=== PATIENT | female | born 1990 | race Caucasian/White ===

== ENCOUNTER 2018-03-19 01:26 | Emergency (ER) | payer OTHER, SELFPAY ==
[2018-03-19] MEDS ORDERED: NA CHLORIDE 0.9% 1,000 ML ONE (01:51)
[2018-03-19] MEDS ORDERED: KETOROLAC 30 MG/ML INJ ONE (01:51)
[2018-03-19] MEDS ORDERED: DICYCLOMINE HCL 10 MG CAP ONE (01:53)
[2018-03-19 02:20] LABS: Absolute Lymphocytes (CBC) 3.2 K/uL (0.7-4.9); Absolute Monocytes 0.6 K/uL (0.1-1.3); Absolute Neutrophil 4.9 K/uL (1.8-8.0); Basophils % 0.6 % (0-1.3); Eosinophils % 1.2 % (0-4.4); Lymphocytes % 36.3 % (15.3-44.8); MCH 28.9 pg (27.0-35.0); MCV 85.9 fL (80-100); MPV 9.7 fL (7.6-11.3); Monocytes % 6.4 % (3.3-12.3); RBC Red Blood Cell Count 4.42 M/uL (3.86-4.86)
[2018-03-19 02:27] LABS: ALT/SGPT 27 U/L (12-78); AST/SGOT 29 U/L (15-37); Albumin 3.7 g/dL (3.4-5.0); Alkaline Phosphatase 107 U/L (45-117); Amylase Level 42 U/L (25-115); BUN Blood Urea Nitrogen 13 mg/dL (7-18); Bicarbonate 30 mmol/L (21-32); Bilirubin Direct < 0.1 mg/dL (0-0.2); Bilirubin Total 0.3 mg/dL (0.2-1.0); Glucose Level 95 mg/dL (74-106); Lipase 127 U/L (73-393); Potassium 3.5 mmol/L (3.5-5.1); Protein, Total 7.5 g/dL (6.4-8.2); Sodium Level 143 mmol/L (136-145)
--- NOTE | 2018-03-19 02:36 | ER ---
Nurse's Notes [facility] Name: Barbie Mancilla Age: 27 yrs Sex: Female : 1990 Arrival Date: 03/19/2018 Time: 01:28 Bed 5 Private MD: Diagnosis: Abdominal pain Presentation: 03/19 01:38 Presenting complaint: Patient states: "I have had gal bladder problems in the past, but jd3 normally the pain goes away. Around 1200 yesterday my stomach started to hurt and it won't let up.". Transition of care: patient was not received from another setting of care. Onset of symptoms was March 19, 2018. Risk Assessment: Do you want to hurt yourself or someone else? Patient reports no desire to harm self or others. Initial Sepsis Screen: Does the patient meet any 2 criteria? No. Patient's initial sepsis screen is negative. Does the patient have a suspected source of infection? No. Patient's initial sepsis screen is negative. Care prior to arrival: None. 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 - Social history:: Smoking status: Patient/guardian denies using tobacco. - Ebola Screening: : Patient negative for fever greater than or equal to 101.5 degrees Fahrenheit, and additional compatible Ebola Virus Disease symptoms. Screenin:42 Abuse screen: Denies threats or abuse. Nutritional screening: No deficits noted. jd3 Tuberculosis screening: No symptoms or risk factors identified. Fall Risk Ambulatory Aid- None/Bed Rest/Nurse Assist (0 pts). Gait- Normal/Bed Rest/Wheelchair (0 pts) Mental Status- Oriented to own ability (0 pts). Total Dillard Fall Scale indicates No Risk (0-24 pts). Assessment: 01:43 General: Appears uncomfortable, Behavior is calm, cooperative, appropriate for age. aa1 Pain: Complains of pain in right upper quadrant and epigastric area Pain radiates to lumbar area Pain currently is 9 out of 10 on a pain scale. Quality of pain is described as crampy, Is continuous. Neuro: Level of Consciousness is awake, alert, obeys commands, Oriented to person, place, time, situation. Respiratory: Airway is patent Respiratory effort is even, unlabored, Respiratory pattern is regular, symmetrical, Breath sounds are clear bilaterally. GI: Abdomen is non-distended, Bowel sounds present X 4 quads. Abd is soft and non tender X 4 quads. : No signs and/or symptoms were reported regarding the genitourinary system. EENT: No signs and/or symptoms were reported regarding the EENT system. Derm: Skin is pink, warm \\T\\ dry. Musculoskeletal: Circulation, motion, and sensation intact. 02:42 Reassessment: Patient and/or family updated on plan of care and expected duration. Pain ea level reassessed. Patient is alert, oriented x 3, equal unlabored respirations, skin warm/dry/pink. Discharge instructions given to patient, verbalized the understanding of instruction. Vital Signs: 01:41 BP 124 / 89; Pulse 74; Resp 17 S; Temp 98.0(O); Pulse Ox 100% on R/A; Weight 104.33 kg jd3 (R); Height 5 ft. 5 in. (165.10 cm) (R); 02:41 BP 104 / 54; Pulse 70; Resp 18; Temp 97.7(TE); Pulse Ox 99% on R/A; Pain 5/10; ea 01:41 Body Mass Index 38.27 (104.33 kg, 165.10 cm) jd3 ED Course: 01:28 Patient arrived in ED. ds1 01:36 Silvia Cho FNP-C is PHCP. snw 01:36 Herb Foley MD is Attending Physician. snw 01:40 Triage completed. jd3 01:41 Kristie Garrett RN is Primary Nurse. aa1 01:41 Arm band placed on. jd3 01:42 Patient has correct armband on for positive identification. Bed in low position. Call j light in reach. Side rails up X 1. 01:49 Inserted saline lock: 20 gauge in right antecubital area, using aseptic technique. aa1 Blood collected. 02:42 No provider procedures requiring assistance completed. IV discontinued, intact, ea bleeding controlled, No redness/swelling at site. Pressure dressing applied. Administered Medications: 01:50 Drug: TORadol 30 mg Route: IVP; Site: right antecubital; ea 02:20 Follow up: Response: No adverse reaction; Pain is decreased ea 01:50 Drug: Bentyl 20 mg Route: PO; ea 02:20 Follow up: Response: No adverse reaction; Marked relief of symptoms ea 01:53 Drug: NS 0.9% 1000 ml Route: IV; Rate: 1 bolus; Site: right antecubital; ea 02:40 Follow up: Response: No adverse reaction; IV Status: Completed infusion; IV Intake: ea 1000ml Intake: 02:40 IV: 1000ml; Total: 1000ml. ea Outcome: 02:36 Discharge ordered by MD. snw 02:42 Condition: improved ea 02:43 Discharged to home ambulatory. ea 02:43 Discharge instructions given to patient, Instructed on discharge instructions, follow up and referral plans. medication usage, Demonstrated understanding of instructions, follow-up care, medications, Prescriptions given X 2. 02:45 Patient left the ED. ea Signatures: Kristie Garrett, RN RN aa1 Silvia Cho, TEST BORING CREW CHIEF-C TEST BORING CREW CHIEF-Csnw Suzanna Gamez ds1 Margarita Ralph RN RN Jossue Staples RN RN jd3
--- NOTE | 2018-03-19 02:36 | EDPHYS ---
Physician Documentation [facility] Name: Barbie Mancilla Age: 27 yrs Sex: Female : 1990 Arrival Date: 03/19/2018 Time: 01:28 Bed 5 Private MD: ED Physician Herb Foley HPI: 03/19 01:40 This 27 yrs old Female presents to ER via Unassigned with complaints of snw Abdominal Cramping. 01:40 The patient presents with abdominal pain in the epigastric area, in the right upper snw quadrant. Onset: The symptoms/episode began/occurred suddenly, just prior to arrival, and became worse and became persistent. The symptoms radiate to back. Associated signs and symptoms: none. The symptoms are described as crampy, spasms. Modifying factors: The symptoms are alleviated by nothing. Severity of pain: At its worst the pain was moderate severe. The patient has experienced similar episodes in the past, but today's symptoms are worse, lasting longer. The patient has not recently seen a physician. 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 - Social history:: Smoking status: Patient/guardian denies using tobacco. - Ebola Screening: : Patient negative for fever greater than or equal to 101.5 degrees Fahrenheit, and additional compatible Ebola Virus Disease symptoms. ROS: 01:37 Constitutional: Negative for fever, chills, and weight loss, Eyes: Negative for injury, snw pain, redness, and discharge, ENT: Negative for injury, pain, and discharge, Neck: Negative for injury, pain, and swelling, Cardiovascular: Negative for chest pain, palpitations, and edema, Respiratory: Negative for shortness of breath, cough, wheezing, and pleuritic chest pain, Back: Negative for injury and pain, : Negative for injury, bleeding, discharge, and swelling, MS/Extremity: Negative for injury and deformity, Skin: Negative for injury, rash, and discoloration, Neuro: Negative for headache, weakness, numbness, tingling, and seizure, Psych: Negative for depression, anxiety, suicide ideation, homicidal ideation, and hallucinations. 01:37 Abdomen/GI: Positive for abdominal pain, radiating to mid back. Exam: 01:37 Constitutional: This is a well developed, well nourished patient who is awake, alert, snw and in no acute distress. Head/Face: Normocephalic, atraumatic. Eyes: Pupils equal round and reactive to light, extra-ocular motions intact. Lids and lashes normal. Conjunctiva and sclera are non-icteric and not injected. Cornea within normal limits. Periorbital areas with no swelling, redness, or edema. ENT: Nares patent. No nasal discharge, no septal abnormalities noted. Tympanic membranes are normal and external auditory canals are clear. Oropharynx with no redness, swelling, or masses, exudates, or evidence of obstruction, uvula midline. Mucous membranes moist. Neck: Trachea midline, no thyromegaly or masses palpated, and no cervical lymphadenopathy. Supple, full range of motion without nuchal rigidity, or vertebral point tenderness. No Meningismus. Chest/axilla: Normal chest wall appearance and motion. Nontender with no deformity. No lesions are appreciated. Cardiovascular: Regular rate and rhythm with a normal S1 and S2. No gallops, murmurs, or rubs. Normal PMI, no JVD. No pulse deficits. Respiratory: Lungs have equal breath sounds bilaterally, clear to auscultation and percussion. No rales, rhonchi or wheezes noted. No increased work of breathing, no retractions or nasal flaring. Back: No spinal tenderness. No costovertebral tenderness. Full range of motion. Skin: Warm, dry with normal turgor. Normal color with no rashes, no lesions, and no evidence of cellulitis. MS/ Extremity: Pulses equal, no cyanosis. Neurovascular intact. Full, normal range of motion. Neuro: Awake and alert, GCS 15, oriented to person, place, time, and situation. Cranial nerves II-XII grossly intact. Motor strength 5/5 in all extremities. Sensory grossly intact. Cerebellar exam normal. Normal gait. Psych: Awake, alert, with orientation to person, place and time. Behavior, mood, and affect are within normal limits. 01:37 Abdomen/GI: Inspection: abdomen appears normal, Bowel sounds: normal, Palpation: moderate abdominal tenderness, in the epigastric area and right upper quadrant. Vital Signs: 01:41 BP 124 / 89; Pulse 74; Resp 17 S; Temp 98.0(O); Pulse Ox 100% on R/A; Weight 104.33 kg jd3 (R); Height 5 ft. 5 in. (165.10 cm) (R); 02:41 BP 104 / 54; Pulse 70; Resp 18; Temp 97.7(TE); Pulse Ox 99% on R/A; Pain 5/10; ea 01:41 Body Mass Index 38.27 (104.33 kg, 165.10 cm) jd3 MDM: 01:44 Patient medically screened. snw 02:34 Data reviewed: vital signs, nurses notes. Data interpreted: Pulse oximetry: on room air snw is 100 %. Interpretation: normal. Counseling: I had a detailed discussion with the patient and/or guardian regarding: the historical points, exam findings, and any diagnostic results supporting the discharge/admit diagnosis, the presence of at least one elevated blood pressure reading (>120/80) during this emergency department visit, lab results, the need for outpatient follow up. Response to treatment: the patient's symptoms have markedly improved after treatment. Special discussion: Based on the patient's Hx, exam, and Dx evaluation, there is no indication for emergent surgery or inpatient Tx. It is understood by the patient/guardian that if the Sx's persist or worsen they need to return immediately for re-evaluation. Based on the history and exam findings, there is no indication for further emergent testing or inpatient evaluation. I discussed with the patient/guardian the need to see the general surgeon for further evaluation of the symptoms. I discussed with the patient/guardian the need to see the primary care provider for further evaluation of the symptoms. ED course: pt feeling much better, discussed need for GB ultrasound that I cannot order at this time. Pt encouraged to return to ED for worsening symptoms or other concerns. 03/19 01:37 Order name: Amylase, Serum; Complete Time: 02:28 snw 03/19 01:37 Order name: Basic Metabolic Panel; Complete Time: 02:28 snw 03/19 01:37 Order name: CBC with Diff snw 03/19 01:37 Order name: Creatinine for Radiology; Complete Time: 02:28 snw 03/19 01:37 Order name: Hepatic Function; Complete Time: 02:28 snw 03/19 01:37 Order name: Lipase; Complete Time: 02:28 snw 03/19 01:37 Order name: Urine Microscopic Only snw 03/19 01:37 Order name: IV Saline Lock; Complete Time: 02:03 snw 03/19 02:01 Order name: Urine Dipstick--Ancillary (enter results) cc 03/19 02:02 Order name: Urine --Ancillary (enter results) cc 03/19 02:02 Order name: Urine --Ancillary EDMS 03/19 01:37 Order name: Labs collected and sent; Complete Time: 02:03 snw 03/19 01:37 Order name: Urine Dipstick-Ancillary (obtain specimen); Complete Time: 02:00 snw 03/19 01:37 Order name: Urine Test (obtain specimen); Complete Time: 02:00 snw 03/19 01:37 Order name: NPO; Complete Time: 02:02 snw Administered Medications: 01:50 Drug: TORadol 30 mg Route: IVP; Site: right antecubital; ea 02:20 Follow up: Response: No adverse reaction; Pain is decreased ea 01:50 Drug: Bentyl 20 mg Route: PO; ea 02:20 Follow up: Response: No adverse reaction; Marked relief of symptoms ea 01:53 Drug: NS 0.9% 1000 ml Route: IV; Rate: 1 bolus; Site: right antecubital; ea 02:40 Follow up: Response: No adverse reaction; IV Status: Completed infusion; IV Intake: ea 1000ml Disposition: 06:59 Co-signature as Attending Physician, Herb Foley MD. rn Disposition: 03/19/18 02:36 Discharged to Home. Impression: Abdominal pain. - Condition is Stable. - Discharge Instructions: Abdominal Pain, Adult, Biliary Colic, Adult. - Prescriptions for Bentyl 20 mg Oral Tablet - take 1 tablet by ORAL route every 6 hours As needed; 20 tablet. Diclofenac Sodium 75 mg Oral Tablet Sustained Release - take 1 tablet by ORAL route 2 times per day; 30 tablet. - Work release form, Medication Reconciliation Form, Thank You Letter, Antibiotic Education, Prescription Opioid Use form. - Follow up: Private Physician; When: 2 - 3 days; Reason: Recheck today's complaints, Continuance of care, Re-evaluation by your physician. Follow up: Emergency Department; When: As needed; Reason: Worsening of condition. Signatures: Dispatcher [employer] EDMS Silvia Cho, RONI-C DRILLING RIG OPERATOR-Csnw Herb Foley MD MD rn Antunez, Elena, RN RN ea Davies, Jonathon RN RN jd3 Corrections: (The following items were deleted from the chart) 02:45 02:36 03/19/2018 02:36 Discharged to Home. Impression: Abdominal pain. Condition is ea Stable. Discharge Instructions: Abdominal Pain, Adult, Biliary Colic, Adult. Prescriptions for Bentyl 20 mg Oral Tablet - take 1 tablet by ORAL route every 6 hours As needed; 20 tablet, Diclofenac Sodium 75 mg Oral Tablet Sustained Release - take 1 tablet by ORAL route 2 times per day; 30 tablet. and Forms are Work release form, Medication Reconciliation Form, Thank You Letter, Antibiotic Education, Prescription Opioid Use. Follow up: Private Physician; When: 2 - 3 days; Reason: Recheck today's complaints, Continuance of care, Re-evaluation by your physician. Follow up: Emergency Department; When: As needed; Reason: Worsening of condition. snw
[2018-03-19 02:52] VITALS: BP 104/54; TEMP 97.7; O2SAT 99
[2018-03-19 03:42] LABS: Urine Bacteria <20 /HPF (<20); Urine Culture Reflex Order NOT NEEDED; Urine RBC NONE SEEN /HPF (NONE SEEN)
[2018-03-19 05:56] LABS: Urine Blood NEGATIVE (NEG); Urine Glucose NEGATIVE (NEG); Urine Protein NEGATIVE (NEG)
== END 2018-03-19 02:45 | disposition home or self-care (01) ==
LOC: ER 01:26
DX: R10.13 Epigastric pain (principal)
CPT/HCPCS: 36415; 80048; 80076; 81003; 81015; 81025; 82150; 83690; 85025; 96361; 96374; 99284; J7030

== ENCOUNTER 2020-09-14 10:58 | Emergency (ER) | payer OTHER ==
--- OUTSIDE RECORDS SUMMARY | 2020-09-14 11:00 | XMS REPORT | Continuity of Care Document ---
:1990 Author Organization [facility] t Address [address] [place] [address] Care Team Providers Name Role Phone Augusto Jimenez Attending Clinician Problems This patient has no known problems. Allergies, Adverse Reactions, Alerts This patient has no known allergies or adverse reactions. Medications This patient has no known medications. Procedures This patient has no known procedures. Encounters Start End Encounter Admission Attending Care Care Encounter Source Date/Time Date/Time Type Type Clinicians Facility Department ID 2020-06-27 2020-06-27 Office [facility] [id number] 09 14:41:27 15:57:11 Visit [facility] [id number] [place] [id number] [place] [id number] [place] 044 Office [address] Results This patient has no known results.
--- OUTSIDE RECORDS SUMMARY | 2020-09-14 11:01 | XMS REPORT | Summary of Care ---
:1990 Author Organization [facility] Address [address] [place] [id number] Care Team Providers Name Role Phone Pcp, Does Not Have A Primary Care Provider Reason for Visit Reason Comments Cough x 1 month RUNNY NOSE green discharge x 1 month Ear Pain left ear x 1 month Congestion x 1 month Encounter Details Date Type Department Care Team Description 06/27/2020 Office Visit [facility] Family Ny Nagel Acut e URI (Primary Dx); Medicine - [place] Sore throat [address] [place] [address] [place] [address] [phone] Allergies No Known Allergiesdocumented as of this encounter (statuses as of 06/28/2020) Medications Medication Sig Dispensed Refills Start Date End Date Status loratadine 10 mg Take 1 tablet by 30 tablet 0 06/27/2020 Active tabletIndications: mouth daily. Acute URI, Sore throat azithromycin 250 mg Take 1 tablet by 1 Package 0 06/27/2020 Active tabletIndications: mouth daily. Take Acute URI, Sore throat 500 mg day 1, then 250 mg days 2 to 5. fluticasone propionate Use 2 Sprays in 16 g 0 06/27/2020 Active 50 mcg/actuation nasal each nostril sprayIndications: Acute daily. URI, Sore throat documented as of this encounter (statuses as of 06/28/2020) Active Problems Problem Noted Date Previous section 07/23/2019 Morbid obesity with body mass index of 40.0-49.9 07/18 documented as of this encounter (statuses as of 06/28/2020) Resolved Problems Problem Noted Date Resolved Date 39 weeks gestation of 01/21/2020 02/13/20 20 Liveborn infant, of [place] , born in hospital by 01/21/2020 02/13/2020 delivery Other back pain, unspecified chronicity 11/15/2019 02/13/2020 High-risk in third trimester 09/17/2019 0 02/13/2020 Second trimester 07/23/2019 09/17/2019 Status post bilateral salpingectomy 07/23/201908/2019 38 weeks gestation of 07/23/2019 01/21/20 20 documented as of this encounter (statuses as of 06/28/2020) Social History Tobacco Use Types Packs/Day Years Used Date Never Smoker Smokeless Tobacco: Never Used Alcohol Use Drinks/Week oz/Week Comments Not Currently Sex Assigned at Date Recorded Not on file COVID-19 Exposure Response Date Recorded In the last month, have you been in contact with No / Unsure 06/27/2020 2:54 PM [employer] someone who was confirmed or suspected to have Coronavirus / COVID-19? documented as of this encounter Last Filed Vital Signs Vital Sign Reading Time Taken Comments Blood Pressure 112/78 06/27/2020 2:53 PM [employer] Pulse 76 06/27/2020 2:53 PM [employer] Temperature 37 C (98.6 F) 06/27/2020 2:53 PM [employer] Respiratory Rate - - Oxygen Saturation 99% 06/27/2020 2:53 PM [employer] Inhaled Oxygen Concentration - - Weight 115.6 kg (254 lb 12.8 oz) 06/27/2020 2:53 PM [employer] Height 165.1 cm (5' 5") 06/27/2020 2:53 PM [employer] Body Mass Index 42.4 06/27/2020 2:53 PM [employer] documented in this encounter Progress Notes Ny Nagel PA - 06/27/2020 2:30 PM CST Cc: Chief Complaint Patient presents with Cough x 1 month RUNNY NOSE green discharge x 1 month Ear Pain left ear x 1 month Congestion x 1 month Frederick Mancilla is a 30 year old female. Patient presents with URI symptoms that began 1 months ago. Travel: No. COVID19 exposure? NO. Sick Contacts? NO URI Presenting symptoms: congestion, cough, ear pain (L, intermittent ) and fatigue Presenting symptoms: no facial pain, no fever, no rhinorrhea (denies rhinorrhea) and no sore throat Duration: 1 month Timing: Intermittent Progression: Unchanged Chronicity: New Worsened by: Nothing Associated symptoms: no arthralgias, no headaches, no myalgias, no neck pain, no sinus pain, no sneezing, no swollen glands and no wheezing Risk factors: not elderly, no chronic cardiac disease, no chronic kidney disease, no chronic respiratory disease, no diabetes mellitus, no immunosuppression, no recent illness, no recent travel and no sick contacts Allergies Frederick has No Known Allergies. Medications No outpatient medications prior to visit. No facility-administered medications prior to visit. Histories Past Medical History: Diagnosis Date Anesthesia complication Difficult with Spinal with last 2018 Second trimester 07/23/2019 Past Surgical History: Procedure Laterality Date SECTION C/S x2 SECTION N/A 01/21/2020 Surgeon: Brielle Lopez MD; Location: [facility] OR Location TUBAL LIGATION Right 01/21/2020 Surgeon: Brielle Lopez MD; Location: [facility] OR Location Social History Socioeconomic History Marital status: Spouse name: Not on file Number of children: Not on file Years of education: Not on file Highest education level: Not on file Occupational History Not on file Social Needs Financial resource strain: Not on file Food insecurity Worry: Not on file Inability: Not on file Transportation needs Medical: Not on file Non-medical: Not on file Tobacco Use Smoking status: Never Smoker Smokeless tobacco: Never Used Substance and Sexual Activity Alcohol use: Not Currently Drug use: Never Sexual activity: Yes Partners: Male Lifestyle Physical activity Days per week: Not on file Minutes per session: Not on file Stress: Not on file Relationships Social connections Talks on phone: Not on file Gets together: Not on file Attends worship service: Not on file Active member of club or organization: Not on file Attends meetings of clubs or organizations: Not on file Relationship status: Not on file Intimate partner violence Fear of current or ex partner: Not on file Emotionally abused: Not on file Physically abused: Not on file Forced sexual activity: Not on file Other Topics Concern Not on file Social History Narrative Feels safe at home Lives at home with and 4 kids Family History Problem Relation Age of Onset Diabetes Mother Hypertension Mother Arthritis Mother Prostate Cancer Father Diabetes Maternal Aunt Liver Cancer Paternal Grandfather Review of Systems Constitutional: Positive for fatigue. Negative for activity change, appetite change, chills, diaphoresis and fever. HENT: Positive for congestion, ear pain (L, intermittent ) and postnasal drip. Negative for ear discharge, facial swelling, rhinorrhea (denies rhinorrhea), sinus pressure, sinus pain, sneezing, sore throat, trouble swallowing and voice change. Eyes: Negative for pain, discharge, redness and itching. Respiratory: Positive for cough. Negative for chest tightness, shortness of breath and wheezing. Cardiovascular: Negative for chest pain, palpitations and leg swelling. Gastrointestinal: Negative for abdominal pain, constipation, diarrhea, nausea and vomiting. Genitourinary: Negative for dysuria, urgency, frequency, hematuria and flank pain. Musculoskeletal: Negative for arthralgias, back pain, gait problem, joint swelling, myalgias, neck pain and neck stiffness. Skin: Negative for color change and rash. Neurological: Negative for dizziness, syncope, weakness, light-headedness and headaches. Psychiatric/Behavioral: Negative for confusion. Vital Signs BP 112/78 (BP Location: Left arm, Patient Position: Sitting, BP CUFF SIZE: Adult Large) | Pulse 76| Temp 37 C (98.6 F) (Oral) | Ht 5' 5" (1.651 m) | Wt 254 lb 12.8 oz (115.6 kg) | LMP 06/25/2020 | SpO2 99% | BMI 42.40 kg/m Physical Exam Vitals signs and nursing note reviewed. Constitutional: General: She is not in acute distress. Appearance: She is well-developed. She is not ill-appearing, toxic-appearing or diaphoretic. HENT: Head: Normocephalic and atraumatic. Right Ear: Tympanic membrane, ear canal and external ear normal. Left Ear: Tympanic membrane, ear canal and external ear normal. Nose: Mucosal edema present. No rhinorrhea. Mouth/Throat: Mouth: Mucous membranes are moist. Pharynx: Oropharynx is clear. Uvula midline. Posterior oropharyngeal erythema present. No pharyngeal swelling, oropharyngeal exudate or uvula swelling. Tonsils: No tonsillar exudate or tonsillar abscesses. 1+ on the right. 1+ on the left. Comments: + post nasal drip Eyes: General: Right eye: No discharge. Left eye: No discharge. Conjunctiva/sclera: Conjunctivae normal. Neck: Musculoskeletal: Normal range of motion and neck supple. Cardiovascular: Rate and Rhythm: Normal rate and regular rhythm. Heart sounds: Normal heart sounds. Pulmonary: Effort: Pulmonary effort is normal. No respiratory distress. Breath sounds: Normal breath sounds. No stridor. No wheezing, rhonchi or rales. Abdominal: General: Bowel sounds are normal. There is no distension. Palpations: Abdomen is soft. Tenderness: There is no abdominal tenderness. There is no guarding. Musculoskeletal: Normal range of motion. Lymphadenopathy: Cervical: No cervical adenopathy. Skin: General: Skin is warm and dry. Findings: No rash. Neurological: Mental Status: She is alert and oriented to person, place, and time. Psychiatric: Behavior: Behavior normal. Assessment/Plan Acute URI (primary encounter diagnosis) Sore throat Plan: POCT GRP A STREP (MOLECULAR), loratadine 10 mg tablet, azithromycin 250 mg tablet, fluticasone propionate 50 mcg/actuation nasal spray Results for FREDERICK MANCILLA ( ) as of 06/28/2020 12:17 Ref. Range 06/27/2020 00:00 POCT GP A STREP Latest Ref Range: Negative - Negative Negative Afebrile, well appearing, non-toxic, NAD. HR < 100, lungs CTAB, O2 sat 99%. Strep negative. COVID-19 test recommended but refused by patient. Recommend self quarantine. Given duration of symptoms, will go ahead and cover for bacterial URI. Take full course as directed with food. Follow-up with ENT if no improvement. Educated on the following at home care: -Take loratadine daily -Take flonase: 1-2 sprays in each nostril daily -Increase water intake -Take over the counter vitamin C/multivitamin with vitamin C -Take Tylenol as needed, avoid nsaids -REST -Wash hands often -Cover mouth when coughing -Wear mask with in the same room/car as others -Gargle with warm salt water as needed -Drink warm liquids as needed. -Throat lozenges as needed -Quarantine until your COVID results are back -Stay in your own bedroom and use a separate bathroom -Keep at least 6 feet from you and others -Avoid sharing personal household items, dishes, glasses, cups, towels -Clean high traffic/touch areas daily. These include but not limited to: doorknobs, refrigerator/cabinet handles, phones, keyboards, tablets, light switches. -Monitor your symptoms. Take your temperature 2 times daily. -Follow-up with PCP as needed, if no improvement. -Monitor your symptoms. Go to the ED if worsening symptoms: chest pain, difficulty breathing, coughing up blood, weakness, dizziness, passing out, AMS. -[facility] handout provided Pt ed/precautions given in detail regarding conditions/medicaitons. Er precautions given. Pt reportsunderstanding and agrees. rtc if s/s worsen or do not improve; Plan of care, desired health behaviors, goals, Ddx, & any prescribed or OTC medications discussed with patient. Education resources & self management tools provided and reviewed with AVS. Patient/guardian/family verbalized understanding & agrees to plan of care. Barriers to care: NONE Ability to manage care: Good This visit did not involve counseling and coordination that comprised more than 50% of the visit time. documented in this encounter Plan of Treatment Date Type Specialty Care Team Description 08/18/2020 Office Visit Obstetrics & Gynecology Heaven Moore PA-C [address] [place] [address] [phone] Health Maintenance Due Date Last Done Comments VARICELLA VACCINES (1 of 2 - 1993 2-dose childhood series) DTaP,Tdap,and Td Vaccines (1 - 2011 Tdap) INFLUENZA VACCINE (#1) 2021 Postponed from 04/15/2020 (Refused) Depression Screening 06/27/2021 06/27/2020 PAP SMEAR 07/18/2022 07/18/2019 PNEUMOCOCCAL 0-64 YEARS COMBINED Aged Out No longer eligible based on SERIES patient's age to complete this topic documented as of this encounter Procedures Procedure Name Priority Date/Time Associated Diagnosis Comme nts POCT GRP A STREP Routine 06/27/2020 Acute URI Results for this (MOLECULAR) Sore throat procedure are i n the results section . documented in this encounter Results POCT GRP A STREP (MOLECULAR) (06/27/2020) Pathologist Sig nature POCT GP A STREP Negative Negative - Negative Specimen Swab - THROAT documented in this encounter Visit Diagnoses Diagnosis Acute URI - Primary Acute upper respiratory infections of un specified site Sore throat Acute pharyngitis documented in this encounter Insurance Payer Benefit Plan / Subscriber ID Effective Phone Address T e Group Dates [facility] [id number] 2016-Prese [address] Medic aid [facility] CHO[facility] - [place] [id number] MANAGED MEDICAID [place], [place] [phone] documented as of this encounter
[2020-09-14] MEDS ORDERED: dexAMETHasone 10 MG/ML VIAL ONE (12:00)
[2020-09-14] MEDS ORDERED: ALBUTEROL INHALER 60 PUFF/8 GM IH ONE (12:00)
[2020-09-14 13:09] LABS: SARS-COV-2 RT PCR POSITIVE (NEGATIVE)
--- NOTE | 2020-09-14 13:37 | RAD REPORT ---
EXAM DESCRIPTION: Brittnee Single View09/14/2020 1:17 pm CLINICAL HISTORY: Fever COMPARISON: none FINDINGS: Moderate left lung opacities. There may be mild right lung opacities. Heart is normal siz e IMPRESSION: Moderate left pulmonary opacities. Probable mild right lung opacities. These findings probably indicate pneumonia
--- NOTE | 2020-09-14 13:58 | EDPHYS ---
Physician Documentation [facility] Name: Barbie Mancilla Age: 30 yrs Sex: Female : 1990 Arrival Date: 09/14/2020 Time: 11:00 Bed 8 Private MD: ED Physician Maryann Rojas HPI: 09/14 12:06 This 30 yrs old Female presents to ER via Ambulatory with complaints of pm1 Shortness Of Breath. 12:06 The patient or guardian reports cough, fever, congestion, fatigue. Onset: The pm1 symptoms/episode began/occurred 1 week(s) ago. Modifying factors: The symptoms are alleviated by her children's breathing treatments, the symptoms are aggravated by nothing. Associated signs and symptoms: Pertinent negatives: chest pain, sore throat. Severity of symptoms: in the emergency department the symptoms are unchanged. The patient has not experienced similar symptoms in the past. The patient has not recently seen a physician. Historical: - Allergies: 11:04 No Known Allergies; ss - Home Meds: 11:04 None [Active]; ss - PMHx: 11:04 None; ss - PSHx: 11:04 ; ss - Immunization history:: Adult Immunizations up to date. - Social history:: Smoking status: Patient denies any tobacco usage or history of. ROS: 12:06 Cardiovascular: Negative for chest pain, palpitations, and edema. pm1 12:06 Abdomen/GI: Negative for abdominal pain, nausea, vomiting, diarrhea, and constipation, Back: Negative for injury and pain, MS/Extremity: Negative for injury and deformity, Skin: Negative for injury, rash, and discoloration, Neuro: Negative for headache, weakness, numbness, tingling, and seizure. 12:06 Constitutional: Positive for body aches, fatigue, fever, Negative for poor PO intake. 12:06 Respiratory: Positive for cough, shortness of breath. Exam: 12:06 Constitutional: This is a well developed, well nourished patient who is awake, alert, pm1 and in no acute distress. Head/Face: Normocephalic, atraumatic. 12:06 Back: No spinal tenderness. No costovertebral tenderness. Full range of motion. Skin: Warm, dry with normal turgor. Normal color with no rashes, no lesions, and no evidence of cellulitis. MS/ Extremity: Pulses equal, no cyanosis. Neurovascular intact. Full, normal range of motion. 12:06 ENT: External ear(s): are unremarkable, Ear canal(s): are normal, TM's: are normal, Posterior pharynx: is normal, airway is patent, no acute changes, peritonsillar mass, is not appreciated, pooling of secretions, is not appreciated. 12:06 Cardiovascular: Exam negative for acute changes, Rate: normal, Rhythm: regular, Pulses: no pulse deficits are appreciated. 12:06 Respiratory: Exam negative for acute changes, respiratory distress, shortness of breath. 12:06 Abdomen/GI: Exam negative for acute changes, Inspection: abdomen appears normal, Palpation: abdomen is soft and non-tender, in all quadrants. 12:06 Neuro: Exam negative for acute changes, Orientation: is normal, Mentation: is normal, Motor: is normal, moves all fours. Vital Signs: 11:04 BP 139 / 68; Pulse 119; Resp 16; Temp 99.1(TE); Pulse Ox 98% on R/A; Weight 113.4 kg; ss Height 5 ft. 5 in. (165.10 cm); Pain 4/10; 13:45 BP 112 / 97; Pulse 107; Resp 20; Pulse Ox 95% ; sv 11:04 Body Mass Index 41.60 (113.40 kg, 165.10 cm) ss MDM: 11:37 Patient medically screened. pm1 13:11 ED course: Patient reports some improvement with albuterol. Main complaint now is her pm1 cough. Offered cough medication and she refused. 13:54 Data reviewed: vital signs. pm1 13:54 Counseling: I had a detailed discussion with the patient and/or guardian regarding: the pm1 historical points, exam findings, and any diagnostic results supporting the discharge/admit diagnosis, lab results, radiology results, the need for outpatient follow up, to return to the emergency department if symptoms worsen or persist or if there are any questions or concerns that arise at home. 09/14 11:44 Order name: Strep; Complete Time: 12:39 pm1 09/14 12:56 Order name: Chest Single View XRAY; Complete Time: 13:40 pm1 09/14 13:10 Order name: COVID-19/FLU A+B; Complete Time: 13:15 EDLA 09/14 13:55 Order name: Throat Culture [facility] 09/14 11:44 Order name: Droplet/Contact Precautions; Complete Time: 11:46 pm1 09/14 11:44 Order name: Labs collected and sent; Complete Time: 12:00 pm1 09/14 11:44 Order name: O2 Per Protocol; Complete Time: 11:46 pm1 Administered Medications: 11:59 Drug: Decadron 10 mg Route: IM; Site: right deltoid; sv 12:49 Follow up: Response: No adverse reaction sv 11:59 Drug: Albuterol HFA Inhaler 2 puffs Route: Inhalation; sv 14:29 Drug: Ivermectin 0.2 mg/kg Route: PO; sv 14:29 Follow up: Response: No adverse reaction; Medication administered at discharge. sv Disposition: 09/14/20 13:57 Discharged to Home. Impression: Coronavirus infection, unspecified - Pneumonia. - Condition is Stable. - Discharge Instructions: Community-Acquired Pneumonia, Adult, Viral Respiratory Infection, [id number], COVID-19. - Prescriptions for ivermectin 3 mg Oral tablet - take 6 tablet by ORAL route one time 09/16/2020 x1 dose; 6 tablet. Prednisone 20 mg Oral Tablet - take 3 tablet by ORAL route once daily for 5 days; 15 tablet. Albuterol Sulfate 90 mcg/actuation - inhale 1-2 puff by INHALATION route every 4-6 hours; 1 Inhaler. - Medication Reconciliation Form, Thank You Letter, Antibiotic Education, Prescription Opioid Use form. - Follow up: Emergency Department; When: As needed; Reason: Worsening of condition. Follow up: Private Physician; When: 2 - 3 days; Reason: Recheck today's complaints, Continuance of care, Re-evaluation by your physician. - Problem is new. - Symptoms have improved. Addendum: 09/15/2020 18:27 Co-signature as Attending Physician, Maryann Rojas MD. m a2 Signatures: Dispatcher [employer] Amita Augustin RN RN sv Smirch, Shelby, RN RN ss Rasta Murphy, GOAT FARMER GOAT FARMER pm1 Maryann Rojas MD MD ma2 Corrections: (The following items were deleted from the chart) 09/14 12:10 11:45 CORONAVIRUS+MR.LAB.BRZ ordered. [facility] 12:11 11:45 Influenza Screen (A \T\ B)+BA.LAB.BRZ ordered. EDLA EDLA 13:09 12:58 Chest Single View+RAD.RAD.BRZ ordered. [facility] EDLA 13:58 13:57 09/14/2020 13:57 Discharged to Home. Impression: Pneumonia due to SARS-associated pm1 coronavirus. Condition is Stable. Forms are Medication Reconciliation Form, Thank You Letter, Antibiotic Education, Prescription Opioid Use. Follow up: Emergency Department; When: As needed; Reason: Worsening of condition. Follow up: Private Physician; When: 2 - 3 days; Reason: Recheck today's complaints, Continuance of care, Re-evaluation by your physician. Problem is new. Symptoms have improved. pm1 14:30 13:58 09/14/2020 13:57 Discharged to Home. Impression: Coronavirus infection, sv unspecified - Pneumonia. Condition is Stable. Forms are Medication Reconciliation Form, Thank You Letter, Antibiotic Education, Prescription Opioid Use. Follow up: Emergency Department; When: As needed; Reason: Worsening of condition. Follow up: Private Physician; When: 2 - 3 days; Reason: Recheck today's complaints, Continuance of care, Re-evaluation by your physician. Problem is new. Symptoms have improved. pm1
--- NOTE | 2020-09-14 13:58 | ER ---
Nurse's Notes [facility] Name: Barbie Mancilla Age: 30 yrs Sex: Female : 1990 Arrival Date: 09/14/2020 Time: 11:00 Bed 8 Private MD: Diagnosis: Coronavirus infection, unspecified-Pneumonia Presentation: 09/14 11:03 Chief complaint: Patient states: fever, cough, congestion and fatigue that began 1 week ss ago. Coronavirus screen: Client presents with at least one sign or symptom that may indicate coronavirus-19. Standard/surgical mask placed on the client. Ebola Screen: Patient denies exposure to infectious person. Patient denies travel to an Ebola-affected area in the 21 days before illness onset. Initial Sepsis Screen: Does the patient meet any 2 criteria? No. Patient's initial sepsis screen is negative. Does the patient have a suspected source of infection? No. Patient's initial sepsis screen is negative. Risk Assessment: Do you want to hurt yourself or someone else? Patient reports no desire to harm self or others. Onset of symptoms was September 07, 2020. 11:03 Method Of Arrival: Ambulatory ss 11:03 Acuity: CAIN 4 ss Historical: - Allergies: 11:04 No Known Allergies; ss - Home Meds: 11:04 None [Active]; ss - PMHx: 11:04 None; ss - PSHx: 11:04 ; ss - Immunization history:: Adult Immunizations up to date. - Social history:: Smoking status: Patient denies any tobacco usage or history of. Screenin:29 Abuse screen: Denies threats or abuse. Denies injuries from another. Nutritional sv screening: No deficits noted. Tuberculosis screening: No symptoms or risk factors identified. Fall Risk None identified. Assessment: 11:55 General: Appears in no apparent distress. uncomfortable, well groomed, well developed, sv Behavior is calm, cooperative, appropriate for age. General: Reports fever for > 3 days, fatigue for >3 days. Pain: Complains of pain in throat Pain currently is 4 out of 10 on a pain scale. Neuro: Level of Consciousness is awake, alert, obeys commands, Oriented to person, place, time, situation, Moves all extremities. Full function Gait is steady, Speech is normal. Respiratory: Reports shortness of breath cough that is non-productive, persistent Airway is patent Respiratory effort is even, unlabored, Respiratory pattern is regular, symmetrical. Derm: Skin is intact, Skin is pink, warm \T\ dry. Musculoskeletal: Range of motion: intact in all extremities. 14:29 Reassessment: Patient appears in no apparent distress at this time. No changes from sv previously documented assessment. Patient and/or family updated on plan of care and expected duration. Pain level reassessed. Patient is alert, oriented x 3, equal unlabored respirations, skin warm/dry/pink. Vital Signs: 11:04 BP 139 / 68; Pulse 119; Resp 16; Temp 99.1(TE); Pulse Ox 98% on R/A; Weight 113.4 kg; ss Height 5 ft. 5 in. (165.10 cm); Pain 4/10; 13:45 BP 112 / 97; Pulse 107; Resp 20; Pulse Ox 95% ; sv 11:04 Body Mass Index 41.60 (113.40 kg, 165.10 cm) ED Course: 11:00 Patient arrived in ED. mr 11:04 Triage completed. ss 11:04 Arm band placed on right wrist. ss 11:27 Amita Meier, RN is Primary Nurse. sv 11:29 Patient has correct armband on for positive identification. Bed in low position. Call sv light in reach. Door closed. Head of bed elevated. 11:37 Rasta Murphy NP is PHCP. pm1 11:37 Maryann Rojas MD is Attending Physician. pm1 11:39 Nurse Practitioner and/or Physician Peanut Butter Maker to see patient. sv 12:00 COVID swab sent to lab. Flu and/or RSV swab sent to lab. Strep swab sent to lab. sv 13:20 Chest Single View XRAY In Process Unspecified. EDMS 14:29 No provider procedures requiring assistance completed. Patient did not have IV access sv during this emergency room visit. Administered Medications: 11:59 Drug: Decadron 10 mg Route: IM; Site: right deltoid; sv 12:49 Follow up: Response: No adverse reaction sv 11:59 Drug: Albuterol HFA Inhaler 2 puffs Route: Inhalation; sv 14:29 Drug: Ivermectin 0.2 mg/kg Route: PO; sv 14:29 Follow up: Response: No adverse reaction; Medication administered at discharge. sv Outcome: 13:57 Discharge ordered by . pm1 14:29 Discharged to home ambulatory. sv 14:29 Condition: stable 14:29 Discharge instructions given to patient, Instructed on discharge instructions, follow up and referral plans. medication usage, Demonstrated understanding of instructions, follow-up care, medications, Prescriptions given X 3. 14:30 Patient left the ED. sv Signatures: Dispatcher [employer] EDAmita Diaz RN RN sv Rivera, Mary mr Smirch, Shelby, RN RN ss Marinas, Patrick, DECKER OPERATOR DECKER OPERATOR pm1
[2020-09-14 14:36] VITALS: BP 112/97; O2SAT 95
[2020-09-14 14:38] VITALS: TEMP 99.1
[2020-09-14] MEDS ORDERED: IVERMECTIN 3 MG TABLET PO ONE (15:00)
== END 2020-09-14 14:30 | disposition home or self-care (01) ==
LOC: ER 10:58
DX: U07.1 COVID-19 (principal); J12.82 Pneumonia due to coronavirus disease 2019
CPT/HCPCS: 87070; 87081; 0240U; 71045; 96372; 99284; J1100

== ENCOUNTER 2022-10-29 01:02 | Emergency (ER) | payer OTHER ==
--- OUTSIDE RECORDS SUMMARY | 2022-10-29 01:06 | XMS REPORT | Continuity of Care Document ---
:1990 Author Organization [facility] t Address [address] [facility] [address] [place] [address] Care Team Providers Name Role Phone PCP, PATIENT DOES NOT HAVE A Primary Care Physician Unavaila IRISH Zuleta Attending Clinician Unavailable Nurse, [facility] Attending Clinician Unavailable Manjit Galvez PA-C Attending Clinician MANJIT GALVEZ Attending Clinician Unavailable Lucia Alvarez MD Attending Clinician Irish Gan MD Attending Clinician Doctor Unassigned, [place] Attending Clinician Unavailable Pob, [facility] Main Attending Clinician Unavailable Josef Bolanos DO Attending Clinician HEAVEN RANGEL Attending Clinician Unavailable [place] Jimenez Attending Clinician [place] RAPHAEL Attending Clinician Unavailable Nurse, [facility] Attending Clinician Unavailable Heaven Rangle PA-C Attending Clinician Shirin Baumann RN Attending Clinician Unavailable Only, [facility] Test Attending Clinician Unavailable 2, [facility] Attending Clinician Unavailable IRISH GAN Admitting Clinician Unavailable Irish Gan MD Admitting Clinician Payers Payer Name Policy Type Policy Number Effective Date Expiration Date [facility] [id number] 2016 CHOICE MEDICAID 00:00:00 Problems Condition Condition Condition Status Onset Resolution Last Treating Co mments Source Name Details Category Date Date Treatment Clinician Date Previous Previous Disease Active 2018-08 Unive rs 2-09 ity of section section 00:00: [place] 00 [facility] Morbid Morbid Disease Active 2018-08 Univers obesity obesity 2-04 ity of with body with body 00:00: Giovanny hitchcock mass index mass index 00 Me dical of of Branch 40.0-49.9 40.0-49.9 Allergies, Adverse Reactions, Alerts Allergy Allergy Status Severity Reaction(s) Onset Inactive Treating Comm ents Source Name Type Date Date Clinician NO KNOWN Drug Active Univers ALLERGIE Class ity of S [facility] Social History Social Habit Start Date Stop Date Quantity Comments Source Exposure to Not sure [facility] SARS-CoV-2 [facility] (event) Branch Alcohol intake 2021-08-31 2021-08-31 Ex-drinker [facility] 00:00:00 00:00:00 (finding) [facility] Tobacco use and 2019-07-18 2019-07-18 Never used Universit y of exposure 00:00:00 00:00:00 [facility] Sex Ass[birth year] At [birth year] Universit y of 00:00:00 00:00:00 [facility] Smoking Status Start Date Stop Date Source Never smoker [facility] Medications Ordered Filled Start Stop Current Ordering Indication Dosage Frequency Signature Comments Components Source Medication Medication Date Date Medication? Clinician (SIG) Name Name No known No Univers medications -17 ity of 12:39: [address] No known No Univers medications -17 ity of 12:39: [address] No known No Univers medications -17 ity of 12:39: [address] No known No Univers medications -17 ity of 12:39: [address] No known No Univers medications -17 ity of 12:39: [address] No known No Univers medications -17 ity of 12:39: [address] ferrous 2021- No [id number] 325mg Take 1 U nivers sulfate 08-18 tablet by ity of (IRON, 00:00: 00:00 mouth 2 [place] FERROUS 00 :00 (two) Medical SULFATE,) [facility] Branch 325 mg (65 daily. mg iron) tablet docusate 2021- No [id number] 100mg Take 1 Univers (COLACE) 08-18 capsule by ity of 100 mg 00:00: 00:00 [place] capsule 00 :00 daily as Medical needed for Branch Constipati on. ascorbic No [id number] 500mg Take 1 Univers acid, 08-18 tablet by ity of vitamin C, 00:00: 00:00 mouth [place] 500 mg 00 :00 daily. Medical tablet Branch ferrous No [id number] 325mg Take 1 U nivers sulfate 08-18 tablet by ity of (IRON, 00:00: 00:00 mouth 2 [place] FERROUS 00 :00 (two) Medical SULFATE,) times Branch 325 mg (65 daily. mg iron) tablet docusate No [id number] 100mg Take 1 Univers (COLACE) 08-18 capsule by ity of 100 mg 00:00: 00:00 [place] capsule 00 :00 daily as Medical needed for Branch Constipati on. ascorbic No [id number] 500mg Take 1 Univers acid, 08-18 tablet by ity of vitamin C, 00:00: 00:00 mouth [place] 500 mg 00 :00 daily. Medical tablet Branch miSOPROStoL 2021- No [id number] 200ug Take 1 Univers 200 mcg 08-17 100 tablet by ity of tablet 00:00: 00:00 mouth [place] 00 :00 SEE-INSTRU Medical CTIONS. Branch Take one tab the night before and one tab the morning of procedure miSOPROStoL No [id number] 200ug Take 1 Univers 200 mcg 08-17 100 tablet by ity of tablet 00:00: 00:00 mouth [place] 00 :00 SEE-INSTRU Medical CTIONS. Branch Take one tab the night before and one tab the morning of procedure Vital Signs Vital Name Observation Time Observation Value Comments Source Systolic blood 2021-08-31 18:31:00 131 mm[Hg] Univer sity of pressure [facility] Diastolic blood 2021-08-31 18:31:00 87 mm[Hg] Unive rsity of pressure [facility] Heart rate 2021-08-31 18:31:00 100 /min Universi ty of [facility] Body temperature 2021-08-31 18:31:00 37 Stephanie [facility] Respiratory rate 2021-08-31 18:31:00 18 /min [facility] Body height 2021-08-31 18:31:00 165.1 cm Universi ty of [facility] Body weight 2021-08-31 18:31:00 118.389 kg Universi ty of [facility] BMI 2021-08-31 18:31:00 43.43 kg/m2 [facility] Oxygen saturation in 2021-08-31 18:31:00 99 /min [facility] Arterial blood by [facility] Pulse oximetry Branch Systolic blood 2021-08-24 15:19:00 128 mm[Hg] Univer sit of [facility] Diastolic blood 2021-08-24 15:19:00 85 mm[Hg] Unive [facility] Heart rate 2021-08-24 15:19:00 93 /min Universi [facility] Body temperature 2021-08-24 15:19:00 36.83 Stephanie [facility] Respiratory rate 2021-08-24 15:19:00 18 /min [facility] Body height 2021-08-24 15:19:00 165.1 cm [facility] Body weight 2021-08-24 15:19:00 118.389 kg [facility] BMI 2021-08-24 15:19:00 43.43 kg/m2 [facility] Procedures Procedure Date / Time Performed Performing Clinician Feng mathur XR TIBIA FIBULA 2 2021-08-31 18:56:00 Manjit Galvez [facility] XR ANKLE 3+ LEFT 2021-08-31 18:56:00 Manjit Galvez [facility] XR TIBIA FIBULA 2 2021-08-31 18:56:00 Manjit Galvez [facility] DISCLOSURE AND CONSENT 2021-08-24 06:01:00 Doctor Unassigned, No University [facility] MEDICAL & SURGICAL Name Medical [facility] h PROCEDURES - FEMALM POCT TEST 2021-08-24 00:00:00 Irish Gan Universi ty [facility] Encounters Start End Encounter Admission Attending Care Care Encounter Source Date/Time Date/Time Type Type Clinicians Facility Department ID 2021-06-11 Outpatient P [facility] JAMEY [id number] Univers 23:46:29 ity [facility] 2021-09-07 2021-09-07 Outpatient R IRISH GAN [facility] [id number] Univers 10:30:00 10:30:00 ity [facility] 2021-09-02 2021-09-02 Telephone Nurse, Zackary [facility] 1.2.840.114 [id number] Univers 00:00:00 00:00:00 Db Urgent HEALTH 350.1.13.10 ity of Care [place] 4.2.7.2.686 Db as YASMIN?BLEA [id number] [address] OFFICE [facility] 2021-09-01 2021-09-01 [facility] 1.2.873.560 [id number] Univers 00:00:00 00:00:00 Manjit HEALTH 350.1.13.10 it y of [place] 4.2.7.2.686 Db as YASMIN?BLEA [id number] [facility] [address] [facility] OFFICE [facility] 2021-08-31 2021-08-31 [facility] 1.2.840.114 [id number] Univers 12:43:11 23:59:00 Encounter Manjit HEALTH 350.1.13.10 ity of [place] 4.2.7.2.686 Db as YASMIN?BLEA [id number] [facility] [address] [place] [address] OFFICE [facility] 2021-08-31 2021-08-31 [facility] 1.2.840.114 [id number] Univers 12:43:10 23:59:00 Encounter Manjit HEALTH 350.1.13.10 ity of [place] 4.2.7.2.686 Db as YASMIN?BLEA [id number] [address] OFFICE [facility] 2021-08-31 2021-08-31 Outpatient R LEONOR [facility] [id number] Univers 12:20:00 13:32:35 MANJIT ity of [facility] 2021-08-31 2021-08-31 Urgent Leonor Manjit [facility] 1.2.840.114 [id number] Univers 12:20:00 12:40:00 Care [facility] 350.1.13.10 ity of [place] 4.2.7.2.686 Db as YASMIN?BLEA [id number] Pr dical KNEY [address] MEDICAL OFFICE BUILDING 2021-08-28 2021-08-28 Outpatient R MALIK [facility] [id number] Univers 00:00:00 00:00:00 ity of [facility] 2021-08-24 2021-08-24 Outpatient R MALIK [facility] [id number] Univers 09:00:00 09:36:04 ity of [facility] 2021-08-24 2021-08-24 Office Malik [facility] 1.2.761.565 [id number] Univers 09:00:00 09:36:04 Visit Cam RANJIT 350.1.13.10 i ty of [place] 4.2.7.2.686 [place] [id number] Pr dicdasha [facility] [address] [facility] 2021-08-24 2021-08-24 Outpatient R MALIK [facility] [id number] Univers 09:00:00 09:36:04 ity of [facility] 2021-08-24 2021-08-24 Outpatient R GAN [facility] [id number] Univers 09:00:00 09:00:00 ity of [facility] 2021-08-24 2021-08-24 Orders Doctor MANJIT 1.2.840.114 [id number] Univers 00:00:00 00:00:00 Only Unassigned, MELINDA 350.1.13.10 ity of [place] [facility] 4.2.7.2.686 Db as [id number] [address] 2021-08-18 2021-08-18 Case Malik [facility] 1.2.105.271 [id number] Univers 00:00:00 00:00:00 Management Cam RANJIT 350.1.13.10 ity of [place] 4.2.7.2.[place] [phone] Pr dical NAL [address] [facility] 2021-08-17 2021-08-17 Senior Mechanical Project Engineer Fernie Carrasco Lab Main [facility] 1.2.8 40.114 [id number] Univers 17:00:00 17:15:00 Visit Irish Gan 350.1.13.10 ity of [place] 4.2.7.2.686 [place] [phone] Pr dical NAL [address] [facility] 2021-08-17 2021-08-17 Outpatient R MALIK [facility] [id number] Univers 17:00:00 [facility] 2021-08-17 2021-08-17 Office Malik [facility] [id number] Univers 15:00:00 15:53:21 Visit Theodore CHURCH 350.1.13.10 i ty of [place] 4.2.7.2.686 [place] [phone] Pr dical [facility] [address] [facility] 2021-08-17 2021-08-17 Outpatient R GAN [facility] [id number] Univers 15:00:00 15:53:21 [facility] 2021-08-17 2021-08-17 Outpatient R GAN IRISH [facility] [id number] Univers 15:00:00 15:53:21 [facility] 2020-11-04 2020-11-04 Patient Luis Miguel [facility] 1.2.840.114 [id number] Univers 00:00:00 00:00:00 Outreach Josef PRIMARY 350.1.13.10 i ty of [facility] 4.2.7.2.686 [place] PAV[place] [phone] Pr dic[address] 2020-08-18 2020-08-18 Outpatient R JUAN CARLOS [facility] [id number] Univers 15:30:00 15:30:00 HEAVEN [facility] 2020-06-27 2020-06-27 Office Ijeoma [facility] 1.2.840.114 [id number] 14:41:27 15:57:11 Visit [facility] 350.1.13.10 [place] 4.2.7.2.686 Professio [phone] [address] 2020-06-27 2020-06-27 Office Ijeoma [facility] 1.2.840.114 [id number] Univers 14:41:27 15:57:11 Visit Ny [facility] 350.1.13.10 i ty of Ran[place] 4.2.7.2.686 Db as Professio [id number] [address] 2020-06-27 2020-06-27 Outpatient R IJEOMA [facility] [id number] Univers 14:30:00 14:30:00 [place] ity [facility] 2020-03-06 2020-03-06 Telephone Irish Gan [facility] 1.2.840.114 [id number] Univers 00:00:00 00:00:00 Cam Ranjit 350.1.13.10 i ty [place].2.[place] Profess[place] [id number] [address] 2020-02-13 2020-02-13 Routine Irish Gan [facility] 1.2.760.301 [id number] Univers 16:18:16 16:45:01 Cam Ranjit 350.1.13.10 ity of Visit [place] 4[place]2.7.2.686 [place] Profess[place] [phone] [address] 2020-02-13 2020-02-13 Outpatient R IRISH GAN [facility] [id number] Univers 16:15:00 16:15:00 ity of [facility] 2020-02-13 2020-02-13 Orders Doctor MANJIT 1.2.840.114 [id number] Univers 00:00:00 00:00:00 Only Unassigned, MELINDA 350.1.13.10 ity of [place] [facility] 4.2.7.2.686 Db as [phone] [address] 2020-01-28 2020-01-28 Nurse Nurse, [facility] 1.2.840.114 [id number] Univers 14:59:23 15:37:31 Visit Juan CarlosHeaven Ranjit 350.1.13.10 ity of [place]2.7.2.[place] Profess[place] [phone] Pr dical nal [address] [facility] 2020-01-28 2020-01-28 Outpatient R [facility] [id number] Univers 15:00:00 15:00:00 ity of [facility] 2020-01-28 2020-01-28 Refill Irish Gan [facility] 1.2.330.509 [id number] Univers 00:00:00 00:00:00 Cam [place] 350.1.13.10 i ty of [place] 4.2.7.2.686 [place] Profess[place] [phone] Pr dical nal 134 [facility] 2020-01-21 2020-01-23 Hospital Irish Gan [facility] 1.2.840.114 [id number] Univers 04:51:41 12:15:00 Encounter Theodore Church 350.1.13.10 ity of [place] 4.2.7.2.686 [place] [id number] [facility] [address] 2020-01-21 2020-01-21 Telephone MANJIT Baumann 1.2.295.856 [id number] Univers 00:00:00 00:00:00 Shirin Hitchcock MELINDA 350.1.13.10 ity of [facility] 4.2.7.2.686 Db as [phone] [facility] [address] 2020-01-18 2020-01-18 Laboratory Only, Adc Test [facility] 1.2.840. 114 [id number] Univers 15:03:24 15:18:24 Only Irish Gan Theodore Church 350.1.13.10 ity of [place] 4[place]2.7.2.[place] Profess[place] [phone] Pr dical nal 353 [facility] 2020-01-18 2020-01-18 Outpatient R [facility] [id number] Univers 14:45:00 14:45:00 ity of [facility] 2020-01-16 2020-01-16 Routine Irish Gan [facility] 1.2.887.489 [id number] Univers 14:56:16 15:26:02 Theodore Church 350.1.13.10 ity of Visit [place] 4.2.7.2.686 [place] Profess[place] [phone] Pr dical nal 134 [facility] 2020-01-16 2020-01-16 Outpatient R IRISH GAN [facility] [id number] Univers 13:45:00 13:45:00 ity of [facility] 2020-01-09 2020-01-09 Routine Gan Irish [facility] 1.2.036.558 [id number] Univers 14:47:31 16:47:07 Cam Ranjit 350.1.13.10 ity of Visit [place] 4.2.7.2.686 [place] Profess[place] [phone] Pr dical nal 134 [facility] 2020-01-09 2020-01-09 Outpatient R IRISH GAN [facility] [id number] Univers 14:45:00 14:45:00 ity of [facility] 2020-01-08 2020-01-08 Telephone Malik Irish [facility] 1.2.840.114 [id number] Univers 00:00:00 00:00:00 Cam Ranjit 350.1.13.10 i [place] of [place] 4[place]2.7.2.[place] [phone] Pr dical nal [address] [place] [address] 2020-01-08 2020-01-08 Patient Doctor [facility] 1.2.840.114 [id number] Univers 00:00:00 00:00:00 Secure Msg Unassigned, Ranjit 350.1.13.10 ity of [place] 4.2.7.2.686 [place] Profess[place] [phone] Pr dical nal 134 [facility] 2020-01-03 2020-01-03 Senior Mechanical Project Engineer Danilo, Fernie Lab Main [facility] 1.2.8 40.114 [id number] Univers 16:31:30 16:46:30 Visit Heaven Rangel 350.1.13.10 ity of [place] 4.2.7.2.[place] Profess[place] [phone] [facility] [address] [facility] 2020-01-03 2020-01-03 Routine Juan Carlos [facility] 1.2.099.040 [id number] Univers 15:35:52 16:19:33 Heaven Ranjit 350.1.13.10 ity of [place] 4.2.7.2.686 [place] Profess[place] [phone] [address] 2020-01-03 2020-01-03 Outpatient R JUAN CARLOS [facility] [id number] Univers 15:30:00 15:30:00 HEAVEN ity of [facility] 2020-01-03 2020-01-03 Case Juan Carlos [facility] 1.2.488.734 [id number] Univers 00:00:00 00:00:00 Management Heaven Ranjit 350.1.13.10 ity of [place] 4[place].7.2.[place] Profess[place] [phone] [address] 2020-01-03 2020-01-03 Orders Doctor MANJIT 1.2.840.114 [id number] Univers 00:00:00 00:00:00 Only Unassigned, MELINDA 350.1.13.10 ity of [place] [facility] 4.2.7.2.686 Db as [phone] [address] 2019-12-28 2019-12-28 Patient Doctor [facility] 1.2.840.114 [id number] Univers 00:00:00 00:00:00 Secure Msg Unassigned, [place] 350.1.13.10 ity of [place] 4.2.7.2.[place] Profess[place] [phone] Pr dic[address] 2019-12-16 2019-12-16 Patient Doctor [facility] 1.2.840.114 [id number] Univers 00:00:00 00:00:00 Secure Msg Unassigned, [place] 350.1.13.10 ity of [place] 4.2.7.2.[place] Profess[place] [phone] [address] 2019-12-13 2019-12-13 Telemedici Irish Gan [facility] 1.2.840.114 [id number] Univers 08:23:23 15:29:40 ne Visit Cam Ranjit 350.1.13.10 it[place] of [place].2.[place] Profess[place] [phone] Pr dical nal 134 [facility] 2019-12-13 2019-12-13 Outpatient R IRISH GAN [facility] [id number] Univers 15:15:00 15:15:00 ity [facility] 2019-11-29 2019-11-29 Routine Juan Carlos [facility] 1.2.428.835 [id number] Univers 12:59:55 13:23:06 Heaven Church 350.1.13.10 ity of [place] 4[place]7.2.[place] Profess[place] [phone] Pr dical nal [address] [place] [address] 2019-11-29 2019-11-29 Outpatient R JUAN CARLOS [facility] [id number] Univers 13:00:00 13:00:00 HEAVEN itdell [facility] 2019-11-29 2019-11-29 Senior Mechanical Project Engineer 2, Adc Lab [facility] 1.2.840.114 [id number] Univers 11:17:02 11:32:02 Visit Heaven Rangel 350.1.13.10 ity of [place]7.2.[place] Profess[place] [phone] Pr dical [facility] 353 [facility] 2019-11-15 2019-11-15 Telemedici Irish Gan [facility] 1.2.840.114 [id number] Univers 08:06:25 15:22:47 ne Visit Theodore Church 350.1.13.10 ity of [place] 4[place]2.7.2.[place] Profess[place] [phone] Pr dical nal [address] [place] [address] 2019-11-15 2019-11-15 Outpatient R IRISH GAN [facility] [id number] Univers 15:00:00 15:00:00 ity [facility] 2019-11-14 2019-11-14 Outpatient R JUAN CARLOS [facility] [id number] Univers 15:15:00 15:15:00 HEAVEN itdell [facility] 2019-11-13 2019-11-13 Patient Doctor [facility] 1.2.840.114 [id number] Univers 00:00:00 00:00:00 Secure Msg UnassignedRanjit 350.1.13.10 ity of [place] 4.2.7.2.[place] Profess[place] [phone] Pr dical nal 134 [facility] 2019-11-12 2019-11-12 Senior Mechanical Project Engineer 2, Adc Lab [facility] 1.2.840.114 [id number] Univers 15:42:11 15:57:11 Visit Irish Gan [place] 350.1.13.10 ity of [place] 4[place]7.2.[place] Profess[place] [phone] Pr dical nal 353 [facility] 2019-11-12 2019-11-12 Outpatient R IRISH GAN [facility] [id number] Univers 15:45:00 15:45:00 ity of [facility] 2019-11-12 2019-11-12 Patient Irish Gan [facility] 1.2.830.938 [id number] Univers 00:00:00 00:00:00 Secure Msg Cam [place] 350.1.13.10 ity of [place] 4[place]7.2.[place] Profess[place] [phone] Pr dic[address] 2019-11-12 2019-11-12 Orders Doctor MANJIT 1.2.840.114 [id number] Univers 00:00:00 00:00:00 Only Unassigned, MELINDA 350.1.13.10 ity of [place] [facility] 4.2.7.2.686 Db as [phone] [address] 2019-11-09 2019-11-09 Patient Irish Gan [facility] 1.2.356.449 [id number] Univers 00:00:00 00:00:00 Secure Msg Cam [place] 350.1.13.10 ity of [place] 4[place]7.2.[place] [phone] Pr dical nal 134 [facility] 2019-11-06 2019-11-06 Patient Irish Gan [facility] 1.2.573.815 [id number] Univers 00:00:00 00:00:00 Secure Msg Cam [place] 350.1.13.10 ity of [place] 4[place]7.2.[place] Profess[place] [phone] [address] 2019-10-17 2019-10-17 Outpatient R JUAN CARLOS [facility] [id number] Univers 16:15:00 16:15:00 HEAVEN ity of [facility] 2019-10-17 2019-10-17 Routine Juan Carlos [facility] 1.2.179.356 [id number] Univers 15:20:11 16:08:19 Heaven Church 350.1.13.10 ity of [place] 4[place]7.2.[place] Profess[place] [phone] [address] 2019-10-17 2019-10-17 Orders Doctor MANJIT 1.2.840.114 [id number] Univers 00:00:00 00:00:00 Only Unassigned, MELINDA 350.1.13.10 ity of [place] [facility] 4.2.7.2.686 Db as [phone] [address] 2019-09-17 2019-09-17 Routine Irish Gan [facility] 1.2.144.403 [id number] Univers 13:31:47 14:04:16 Theodore Church 350.1.13.10 ity of [place]2.[place] Profess[place] [phone] [address] Results Test Description Test Time Test Comments Results Result Comments Source POCT TEST 2021-08-24 15:16:00 Test Item Value Reference Range Interpretation Comme nts POCT PREG (test code = 1605) Negative On board controls acceptable with C Line (test code = 3574) Yes POCT PREG LOT # (test code = 3575) POCT PREG TEST DATE (test code = 3576) [place] [id number] 15:16:00 Test Item Value Reference Range Interpretation Comments POCT PREG (test code = 1605) Negative On board controls acceptable with C Yes Line (test code = 3574) POCT PREG LOT # (test code = 3575) POCT PREG TEST DATE (test code = 3576) [facility]
[2022-10-29 01:38] LABS: Urine Bacteria None Seen /HPF (<20); Urine Mucus 3+ /HPF (None Seen); Urine RBC >50 /HPF (None Seen)
[2022-10-29] MEDS ORDERED: NA CHLORIDE 0.9% 1,000 ML ONE ×2 (02:04→06:19)
[2022-10-29] MEDS ORDERED: FENTANYL CITR 100 MCG/2 ML ONE (02:04)
[2022-10-29] MEDS ORDERED: ONDANSETRON 4 MG/2 ML VIAL ONE (02:04)
[2022-10-29 02:21] LABS: Urine Blood Negative (Negative); Urine Glucose Negative (Negative); Urine Protein Negative (Negative)
[2022-10-29 02:24] LABS: Absolute Lymphocytes (CBC) 0.7 K/uL (0.7-4.9); Hematocrit 27.7 % (36.0-45.0); Lymphocytes % 4.1 % (15.3-44.8); MCV 67.3 fL (80-100); MPV 7.7 fL (7.6-11.3); RBC Red Blood Cell Count 4.12 M/uL (3.86-4.86)
[2022-10-29 02:40] LABS: Albumin 3.5 g/dL (3.4-5.0); Bilirubin Total 0.5 mg/dL (0.2-1.0); Potassium 3.5 mEq/L (3.5-5.1); Protein, Total 7.3 g/dL (6.4-8.2)
[2022-10-29 03:04] LABS: Platelet Estimate INCR; White Blood Cell Scan OK (OK)
[2022-10-29 03:05] LABS: Anisocytosis 1+; Blood Morphology Comment NOTED (NOT SEEN); Burr Cells 1+; Hypochromasia 1+; Ovalocytes 2+; Poikilocytosis 1+; Target Cells 1+; Teardrop Cell 1+
[2022-10-29] MEDS ORDERED: NA CHLORIDE 0.9% 100 ML ONE (03:44)
[2022-10-29] MEDS ORDERED: PIPERACIL/TAZO 3.375 GM VIAL IV ONE (03:44)
[2022-10-29] MEDS ORDERED: MORPHINE 4 MG/ML SYR ONE (04:26)
[2022-10-29] MEDS ORDERED: METOCLOPRAMIDE 10 MG/2mL INJ ONE (04:26)
[2022-10-29] MEDS ORDERED: D5.45NS W/KCL 20MEQ 1,000 ML IV ONE (06:19)
--- NOTE | 2022-10-29 06:39 | ER ---
Nurse's Notes [facility] Name: Barbie Mancilla Age: 32 yrs Sex: Female : 1990 Arrival Date: 10/29/2022 Time: 01:05 Bed 5 Private MD: Diagnosis: Acute cholecystitis;Leukocytosis, cholelithiasis with acute cholecystitis Presentation: 10/29 01:22 Chief complaint: Patient states: "I get abdominal pain every once in a while but I can vc1 lay in a position and it goes away. Tonight it just hurts so bad I can't sleep.". Coronavirus screen: Vaccine status: Patient reports being unvaccinated. Client denies travel out of the [place] in the last 14 days. At this time, the client does not indicate any symptoms associated with coronavirus-19. Ebola Screen: Patient negative for fever greater than or equal to 101.5 degrees Fahrenheit, and additional compatible Ebola Virus Disease symptoms Patient denies exposure to infectious person. Patient denies travel to an Ebola-affected area in the 21 days before illness onset. No symptoms or risks identified at this time. Initial Sepsis Screen: Does the patient meet any 2 criteria? HR > 90 bpm. No. Patient's initial sepsis screen is negative. Does the patient have a suspected source of infection? Yes: Acute abdominal pain. Risk Assessment: Do you want to hurt yourself or someone else? Patient reports no desire to harm self or others. Onset of symptoms was October 29, 2022. 01:22 Method Of Arrival: Ambulatory vc1 01:22 Acuity: CAIN 3 vc1 Triage Assessment: 01:26 General: Appears distressed, uncomfortable, ill, obese, Behavior is calm, cooperative, vc1 appropriate for age. Pain: Complains of pain in epigastric area Pain does not radiate. Pain currently is 9 out of 10 on a pain scale. Quality of pain is described as crampy, sharp, stabbing, Pain began suddenly, Is continuous, Noted to be crying, grimacing, guarding. EENT: No deficits noted. No signs and/or symptoms were reported regarding the EENT system. Neuro: Level of Consciousness is awake, alert, obeys commands, Oriented to person, place, time, situation, Appropriate for age. Cardiovascular: No deficits noted. Rhythm is sinus tachycardia. Respiratory: Airway is patent Respiratory effort is even, unlabored, Respiratory pattern is regular, symmetrical. GI: Reports upper abdominal pain. : No deficits noted. No signs and/or symptoms were reported regarding the genitourinary system. Derm: No deficits noted. No signs and/or symptoms reported regarding the dermatologic system. Musculoskeletal: No deficits noted. No signs and/or symptoms reported regarding the musculoskeletal system. 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 - Social history:: Smoking status: Patient denies any tobacco usage or history of. - Family history:: not pertinent. Screenin:27 [facility] ED Fall Risk Assessment (Adult) History of falling in the last 3 months, vc1 including since admission No falls in past 3 months (0 pts) Confusion or Disorientation No (0 pts) Intoxicated or Sedated No (0 pts) Impaired Gait No (0 pts) Mobility Assist Device Used No (0 pt) Altered Elimination No (0 pt) Score/Fall Risk Level 0 - 2 = Low Risk Oriented to surroundings, Maintained a safe environment, Educated pt \\T\\ family on fall prevention, incl call for assistance when getting out of bed. Abuse screen: Denies threats or abuse. Nutritional screening: No deficits noted. Tuberculosis screening: No symptoms or risk factors identified. Assessment: 02:33 General: Appears in no apparent distress. Behavior is calm, cooperative. Pain: as6 Complains of pain in right upper quadrant and epigastric area. Neuro: Level of Consciousness is awake, alert, obeys commands, Oriented to person, place, time, situation. Respiratory: Respiratory effort is even, unlabored, Respiratory pattern is regular, symmetrical. GI: Reports upper abdominal pain, nausea. 04:18 General: "the medicine was working but now my pain and nausea have come back" provider as6 notified . Vital Signs: 01:22 BP 140 / 103; Pulse 130; Resp 20; Temp 100(O); Pulse Ox 100% ; Weight 117.93 kg; Height vc1 5 ft. 5 in. ; Pain 9/10; 02:33 BP 128 / 67; Pulse 101; Resp 17 S; Pulse Ox 98% on R/A; as6 04:19 BP 122 / 69; Pulse 113; Resp 19 S; Pulse Ox 100% on R/A; as6 05:36 BP 133 / 83; Pulse 104; Resp 20 S; Pulse Ox 97% on R/A; as6 01:22 Body Mass Index 43.27 (117.93 kg, 165.1 cm) vc1 01:22 Pain Scale: Adult vc1 ED Course: 01:05 Patient arrived in ED. ja2 01:19 Michael Brown, RN is Primary Nurse. as6 01:25 Triage completed. vc1 01:27 Arm band placed on left wrist. vc1 01:28 Patient has correct armband on for positive identification. Bed in low position. Client vc1 placed on continuous cardiac and pulse oximetry monitoring. NIBP monitoring applied. 01:34 Caleb Salas MD is Attending Physician. sp4 01:46 US Abdomen Limited In Process Unspecified. EDMS 02:00 Inserted saline lock: 20 gauge in right antecubital area, using aseptic technique. as6 Blood collected. 03:32 CT Abd/Pelvis - IV Contrast Only In Process Unspecified. EDMS 06:37 Paul Butts MD is Referral Physician. sp4 Administered Medications: 02:10 Drug: NS 0.9% IV 1000 ml Route: IV; Rate: 1 bolus; Site: right antecubital; as6 02:10 Drug: Ondansetron IVP 4 mg Route: IVP; Site: right antecubital; as6 02:10 Drug: fentaNYL (PF) IVP 50 mcg Route: IVP; Site: right antecubital; as6 04:18 Drug: Piperacillin-Tazobactam IVPB 3.375 grams Route: IVPB; Infused Over: 60 mins; as6 Site: right antecubital; 04:24 Drug: metoCLOPramide IVP 10 mg Route: IVP; Site: right antecubital; as6 04:24 Drug: morphine IVP or IV 4 mg Route: IVP; Infused Over: 4 mins; Site: right antecubital;as6 06:18 Drug: NS 0.9% IV 1000 ml Route: IV; Rate: 1 bolus; Site: right antecubital; as6 06:19 Drug: D5-1/2 NS with KCl IV 20 mEq/L 1000 ml Route: IV; Rate: 125 ml/hr; Site: right as6 antecubital; Medication: 01:28 VIS not applicable for this client. vc1 Outcome: 06:38 Discharge ordered by . [email or web address] Signatures: Dispatcher [employer] EDSilvia Cook, RONI-C PROFILE SAW SETUP OPERATOR-Csnw Shirin Antoine Ashby, RN RN as6 Yessi Alberto RN RN vc1 Caleb Salas MD MD sp4
--- NOTE | 2022-10-29 06:39 | EDPHYS ---
Physician Documentation [facility] Name: Barbie Mancilla Age: 32 yrs Sex: Female : 1990 Arrival Date: 10/29/2022 Time: 01:05 Bed 5 Private MD: ED Physician Caleb Salas HPI: 10/29 01:30 This 32 yrs old Female presents to ER via Ambulatory with complaints of Abdominal Pain, snw Abdominal Cramping. 01:30 The patient presents with abdominal pain in the epigastric area, in the right upper snw quadrant. Onset: The symptoms/episode began/occurred suddenly, at 17:30, and became worse s/p eating [employer], and became persistent. The symptoms radiate to right back. Associated signs and symptoms: Pertinent positives: nausea. The symptoms are described as crampy, shooting. Severity of pain: At its worst the pain was incapacitating in the emergency department the pain has improved mildly. The patient has experienced a previous episode, many years ago. The patient has not recently seen a physician. 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 - Social history:: Smoking status: Patient denies any tobacco usage or history of. - Family history:: not pertinent. ROS: 01:30 Constitutional: Negative for fever, chills, and weight loss, Eyes: Negative for injury, snw pain, redness, and discharge, ENT: Negative for injury, pain, and discharge, Neck: Negative for injury, pain, and swelling, Cardiovascular: Negative for chest pain, palpitations, and edema, Respiratory: Negative for shortness of breath, cough, wheezing, and pleuritic chest pain, Back: Negative for injury and pain, : Negative for injury, bleeding, discharge, and swelling, MS/Extremity: Negative for injury and deformity, Skin: Negative for injury, rash, and discoloration, Neuro: Negative for headache, weakness, numbness, tingling, and seizure, Psych: Negative for depression, anxiety, suicide ideation, homicidal ideation, and hallucinations. 01:30 Abdomen/GI: Positive for abdominal pain, nausea, abdominal cramps. Exam: 01:29 Head/Face: Normocephalic, atraumatic. Eyes: Pupils equal round and reactive to light, snw extra-ocular motions intact. Lids and lashes normal. Conjunctiva and sclera are non-icteric and not injected. Cornea within normal limits. Periorbital areas with no swelling, redness, or edema. ENT: Nares patent. No nasal discharge, no septal abnormalities noted. Tympanic membranes are normal and external auditory canals are clear. Oropharynx with no redness, swelling, or masses, exudates, or evidence of obstruction, uvula midline. Mucous membranes moist. Neck: Trachea midline, no thyromegaly or masses palpated, and no cervical lymphadenopathy. Supple, full range of motion without nuchal rigidity, or vertebral point tenderness. No Meningismus. Chest/axilla: Normal chest wall appearance and motion. Nontender with no deformity. No lesions are appreciated. 01:29 Respiratory: Lungs have equal breath sounds bilaterally, clear to auscultation and percussion. No rales, rhonchi or wheezes noted. No increased work of breathing, no retractions or nasal flaring. 01:29 Back: No spinal tenderness. No costovertebral tenderness. Full range of motion. Skin: Warm, dry with normal turgor. Normal color with no rashes, no lesions, and no evidence of cellulitis. MS/ Extremity: Pulses equal, no cyanosis. Neurovascular intact. Full, normal range of motion. Neuro: Awake and alert, GCS 15, oriented to person, place, time, and situation. Cranial nerves II-XII grossly intact. Motor strength 5/5 in all extremities. Sensory grossly intact. Cerebellar exam normal. Normal gait. Psych: Awake, alert, with orientation to person, place and time. Behavior, mood, and affect are within normal limits. 01:29 Constitutional: The patient appears alert, awake, anxious, obese, uncomfortable. 01:29 Cardiovascular: Rate: tachycardic, Rhythm: regular, Pulses: no pulse deficits are appreciated, Heart sounds: normal. 01:29 Abdomen/GI: Inspection: obese Bowel sounds: normal, in all quadrants, Palpation: moderate abdominal tenderness, in the epigastric area and right upper quadrant, Indicators: Ordaz's sign is positive. Vital Signs: 01:22 BP 140 / 103; Pulse 130; Resp 20; Temp 100(O); Pulse Ox 100% ; Weight 117.93 kg; Height vc1 5 ft. 5 in. ; Pain 9/10; 02:33 BP 128 / 67; Pulse 101; Resp 17 S; Pulse Ox 98% on R/A; as6 04:19 BP 122 / 69; Pulse 113; Resp 19 S; Pulse Ox 100% on R/A; as6 05:36 BP 133 / 83; Pulse 104; Resp 20 S; Pulse Ox 97% on R/A; as6 01:22 Body Mass Index 43.27 (117.93 kg, 165.1 cm) vc1 01:22 Pain Scale: Adult vc1 MDM: 01:25 Patient medically screened. snw 01:36 Differential diagnosis: cholecystitis, Cholelithiasis, gastritis, Hepatitis, snw Pyelonephritis. 01:37 Data reviewed: vital signs, nurses notes. Transition of care: After a detail discussion snw of the patient's case, care is transferred to Caleb Salas MD. 05:27 Differential diagnosis: Of acute cholecystitis, pancreatitis, gastritis, enteritis, sp4 colon inflammation. Data reviewed: lab test result(s), amylase and lipase, CBC, electrolytes, hepatic panel, urinalysis, UPT: negative. 05:28 Data reviewed: radiologic studies, CT scan, ultrasound. ED course: Patient has sp4 significant leukocytosis at 16,000. 05:29 ED course: Leukocytosis associated with a left shift, limited ultrasound revealed sp4 gallbladder wall thickening with lack of normal visualization of the gallbladder possibility of the field gallbladder with calculi. CT abdomen pelvis revealed liquefied large bowel contents can be seen in the setting of diarrheal illness colonic diverticulosis without diverticulitis and cholelithiasis. No evidence of cholecystitis on the CT scan. 05:40 ED course: Patient remains tachycardic but blood pressure is stable. Patient was sp4 advised to stay in hospital to see general surgeon in the morning as findings of her work-up point out to acute cholecystitis. . 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 ED course: Patient was advised to stay in the hospital and see general surgeon but she cannot stay at this time so we will make this an informed discharge. Patient will be prescribed p.o. Keflex and Flagyl for acutely infected gallbladder and she will be prescribed p.o. Phenergan and p.o. ibuprofen high-dose. She will be advised to return to the hospital as soon as possible for a consultation with a general surgeon. . 10/29 01:11 Order name: Urine Culture [facility] 10/29 01:11 Order name: Urine Microscopic Only; Complete Time: 02:11 snw 10/29 01:23 Order name: US Abdomen Limited [facility] 10/29 01:23 Order name: Blood Culture Adult (2) [facility] 10/29 01:23 Order name: Labs collected and sent; Complete Time: 02:32 snw 10/29 01:23 Order name: IV Saline Lock; Complete Time: 02:32 snw 10/29 01:11 Order name: Urine Test (obtain specimen); Complete Time: 02:32 snw 10/29 01:11 Order name: Urine Dipstick-Ancillary (obtain specimen); Complete Time: 02:32 snw 10/29 01:23 Order name: CMP; Complete Time: 03:02 snw 10/29 01:23 Order name: Lipase; Complete Time: 03:02 snw 10/29 02:22 Order name: Urine --Ancillary (enter results); Complete Time: 03:02 ds4 10/29 01:23 Order name: CBC with Diff; Complete Time: 03:32 snw 10/29 02:24 Order name: CT Abd/Pelvis - IV Contrast Only la1 10/29 02:27 Order name: CBC Smear Scan; Complete Time: 03:32 EDMS 10/29 02:21 Order name: Urine Dipstick-Ancillary; Complete Time: 03:02 EDMS Administered Medications: 02:10 Drug: NS 0.9% IV 1000 ml Route: IV; Rate: 1 bolus; Site: right antecubital; as6 02:10 Drug: Ondansetron IVP 4 mg Route: IVP; Site: right antecubital; as6 02:10 Drug: fentaNYL (PF) IVP 50 mcg Route: IVP; Site: right antecubital; as6 04:18 Drug: Piperacillin-Tazobactam IVPB 3.375 grams Route: IVPB; Infused Over: 60 mins; as6 Site: right antecubital; 04:24 Drug: metoCLOPramide IVP 10 mg Route: IVP; Site: right antecubital; as6 04:24 Drug: morphine IVP or IV 4 mg Route: IVP; Infused Over: 4 mins; Site: right antecubital;as6 06:18 Drug: NS 0.9% IV 1000 ml Route: IV; Rate: 1 bolus; Site: right antecubital; as6 06:19 Drug: D5-1/2 NS with KCl IV 20 mEq/L 1000 ml Route: IV; Rate: 125 ml/hr; Site: right as6 antecubital; Disposition: 06:35 Co-signature as Attending Physician, Caleb Salas MD I reviewed the patient's care sp4 provided by Advanced Practice Provider \T\ agree w/ the diagnosis \T\ care plan. I personally saw the pt \T\ performed a substantive portion of the visit, incldng all aspects of the (History/Exam/Medical Decision Making). Disposition Summary: 10/29/22 06:38 Discharge Ordered Location: Home sp4 Problem: new sp4 Symptoms: have improved sp4 Condition: Stable sp4 Diagnosis - Acute cholecystitis sp4 - Leukocytosis, cholelithiasis with acute cholecystitis sp4 Followup: sp4 - With: Paul Butts MD - When: 24 Hours - Reason: Recheck today's complaints Forms: - Medication Reconciliation Form sp4 - Thank You Letter sp4 - Antibiotic Education sp4 - Prescription Opioid Use sp4 Signatures: Dispatcher [employer] Silvia Mcguire FNP-Adam TAMAYO-Michael Greenwood RN RN as6 Yessi Alberto RN RN vc1 Caleb Salas MD MD sp4
[2022-10-29] MEDS ORDERED: CIPROFLOXACIN HCL 500 MG TAB ONE (06:47)
[2022-10-29] MEDS ORDERED: metroNIDAZOLE 500 MG TABLET ONE (06:47)
[2022-10-29] MEDS ORDERED: PROMETHAZINE 25 MG TABLET ONE (06:48)
[2022-10-29 07:19] VITALS: TEMP 100
[2022-10-29 07:23] VITALS: BP 133/83; O2SAT 97
--- NOTE | 2022-10-29 19:33 | RAD REPORT ---
EXAM DESCRIPTION: US - Abdomen Exam Limited - 10/29/2022 1:45 am CLINICAL HISTORY: 32 years, Female, ABD PAIN COMPARISON: None. TECHNIQUE: Utilizing a curved array transducer, real-time ultrasound evaluation of the abdominal vis cera was performed. Color Doppler imaging was used to assess vascular flow. FINDINGS: There is lack of normal visualization of the gallbladder, there is no history of cholecyst ectomy therefore possibility of a filled gallbladder with calculi could be of consideration. There is a bladder wall thickening measuring 6.1 mm. The common bile duct was difficult to visualize due to g allbladder shadowing. At the portal aspect measured 4.3 mm. The liver, pancreas, right kidney and retroperitoneum was not evaluated/measured by ultrasound techno logist. IMPRESSION: Gallbladder wall thickening with lack of normal visualization of the gallbladder, there is no history of cholecystectomy, therefore possibility of a filled gallbladder with calculi could be of consideration. Electronically signed by: Miguel Oneill MD 10/29/2022 2:05 AM CDT Due to temporary technical issues with the PACS/Fluency reporting system, reports are being signed by the in house radiologists without review as a courtesy to insure prompt reporting. The interpreting radiologist is fully responsible for the content of the report.
--- NOTE | 2022-10-29 19:38 | RAD REPORT ---
EXAM DESCRIPTION: CT - Abdomen Pelvis W Contrast - 10/29/2022 6:47 am CLINICAL HISTORY: 32 years Female ABD PAIN/ CRAMPING COMPARISON: Ultrasound abdomen 10/29/2022. TECHNIQUE: CT of the abdomen and pelvis without contrast. All CT scans at this facility use dose modulation, iterative reconstruction, and/or weight based dosi ng when appropriate to reduce radiation dose to as low as reasonably achievable. FINDINGS: Lower thorax: Lung bases are clear Abdomen: Stomach: Within normal limits Liver: No focal lesions. No intrahepatic ductal distention. Gallbladder: Cholelithiasis. Pancreas: Within normal limits Spleen: Within normal limits Right kidney: No hydronephrosis. No renal or ureteral calculi. Left kidney: No hydronephrosis. No renal or ureteral calculi. Adrenal glands: Within normal limits Vascular structures: Within normal limits (although limited evaluation on noncontrast exam). Lymph nodes: No lymphadenopathy by size criteria Pelvis: Small bowel: No significant distention. Appendix: Within normal limits Colon: No distention or acute pericolonic edema. Colonic diverticulosis. Liquefied large bowel conten ts. Peritoneum: No free intraperitoneal fluid or air. Bones: No acute bone findings. Bladder: Underdistended, limiting evaluation. Reproductive organs: No acute findings. Soft tissues: Small fat-containing umbilical hernia. Note that evaluation of the bowel and solid organs is somewhat limited due to lack of intravenous and oral contrast. IMPRESSION: 1. Liquefied large bowel contents, can be seen in setting of diarrheal illness. 2. Colonic diverticulosis without diverticulitis. 3. Cholelithiasis. Electronically signed by: Martha Burrell MD 10/29/2022 4:37 AM CDT Due to temporary technical issues with the PACS/Fluency reporting system, reports are being signed by the in house radiologists without review as a courtesy to insure prompt reporting. The interpreting radiologist is fully responsible for the content of the report.
== END 2022-10-29 06:55 | disposition home or self-care (01) ==
LOC: ER 01:02
DX: K80.00 Calculus of gallbladder with acute cholecystitis without obstruction (principal); D72.829 Elevated white blood cell count, unspecified
CPT/HCPCS: 96365; 96361; 87040 ×2; 87088; 85025; 87086; 36415; 81025; 83690; 80053; 74177; 76705; 96375; 99284; 96366; Q9967; Q0169; J2765; J2543; J3010; J2405; J7030 ×2; 81003; 81015

== ENCOUNTER 2024-07-09 09:38 | Emergency (ER) | payer OTHER ==
--- OUTSIDE RECORDS SUMMARY | 2024-07-09 09:42 | XMS REPORT | Continuity of Care Document ---
Author Name Unknown Address [address] [facility] [address] [place] [address] [facility] thconnect Address [address] [facility] [address] [place] [address] Care Team Providers Care Printer Apprentice Name Role Phone Kika Zhang MD Primary Care Physici an Kika Zhang MD Attending Clinician NICOLASA MENEZES Attending Clinician Unavailable Pob, [facility] Main Attending Clinician UnavailKika Maguire MD Attending Clinician KINZA VENEGAS Attending Clinician Unavaila Kinza Henley Attending Clinician [phone] KIKA ZHANG Attending Clinician Meeta Irish Baldwin MD Attending Clinician [phone] Doctor Unassigned, [facility] Attending Clinician U IRISH Najera Attending Clinician Unavailable Nurse, [facility] Attending Clinician Un available Manjit Galvez PA-C Attending Clinician [phone] MANJIT GALVEZ Attending Clinician Unavailable Lucia Alvarez MD Attending Clinician [phone] Josef Bolanos DO Attending Clinician [phone] HEAVEN RANGEL Attending Clinician Unavailable Ny Jimenez Attending Clinician [phone] [place] RAPHAEL Attending Clinician Unavailable Nurse, [facility] Attending Clinician Un available Heaven Rangel PA-C Attending Clinician [phone] Pastor MCCLURE, Shirin Sotomayor Attending Clinician Unavaila ble Only, [facility] Test Attending Clinician Unavailable 2, [facility] Attending Clinician Unavailable IRISH GAN Admitting Clinician Unavailable KINZA VENEGAS Admitting Clinician Unavaila Irish Rosado MD Admitting Clinician [phone] Payers Payer Name Policy Type Policy Number Effective Date Expirati on Date Source [employer] MEDICAID [id number] 2016 00:00:00 Problems Condition Name Condition Details Condition Category Status Onset Date Resolution Date Last Treatment Date Treating Clinician Comments Source Previous section Previous section Disease Active 2018-08 00:00: 00 [facility] Morbid obesity with body mass index of 40.0-49.9 Morbid obesity with body mass index of 40.0-49.9 Disease Active 2018-08 2 00:00: 00 [facility] 39 weeks gestation of 39 weeks gestation of Disease Resolve d 2019-0 6-08 00:00: 00 2020-02-13 00:00:00 2020-02-13 16:47:55 [facility] Liveborn infant, of [place] , born in hospital by delivery Liveborn , of [place] , born in hospital by delivery Disease Resolve d 2020-0 6-08 00:00: 00 2020-02-13 00:00:00 2020-02-13 15:43:13 [facility] Other back pain, unspecifie d chronicity Other back pain, unspecifie d chronicity Disease Resolve d 2019-0 4-02 00:00: 00 2020-02-13 00:00:00 2020-02-13 16:47:59 [facility] High-risk in third trimester High-risk in third trimester Disease Resolve d 2019-0 2-03 00:00: 00 2020-02-13 00:00:00 2020-02-13 15:43:13 [facility] Status post bilateral salpingect brandon Status post bilateral salpingect brandon Disease Resolve d 2018-08 00:00: 00 2020-02-13 00:00:00 2020-02-13 15:43:13 [facility] 38 weeks gestation of 38 weeks gestation of Disease Resolve d 2018-08 00:00: 00 2020-01-21 00:00:00 2020-01-21 07:18:34 [facility] Second trimester Second trimester Disease Resolve d 2018-08 00:00: 00 2019-09-17 00:00:00 2019-09-17 14:03:48 [facility] Allergies, Adverse Reactions, Alerts Allergy Name Allergy Type Status Severity Reaction(s) Onset Date Inactive Date Treating Clinician Comments Source NO KNOWN ALLERGIE S Drug Class Active [facility] Social History Social Habit Start Date Stop Date Quantity Comments Source [facility] beverage intake 2024-01-12 00:00:00 2024-01-12 00:00:00 Ex-drinker (finding) [facility] History of Social function 2024-01-11 00:00:00 2024-01-11 00:00:00 [facility] Alcohol intake 2023-11-02 00:00:00 2023-11-02 00:00:00 Ex-drinker (finding) [facility] Exposure to SARS-CoV-2 (event) 2022-12-06 00:00:00 2022-12-16 08:27:00 Not sure [facility] Tobacco use and exposure 2022-11-02 00:00:00 2022-11-02 00:00:00 Smokeless tobacco non-user [facility] Sex assigned at 1990 00:00:00 1990 00:00:00 [facility] Smoking Status Start Date Stop Date Source Never smoked tobacco [facility] Medications Ordered Medication Name Filled Medication Name Start Date Stop Date Current Medication? Ordering Clinician Indication Dosage Frequency Signature (SIG) Comments Components Source medroxyPROG ESTERone (PROVERA) 10 mg tablet 2024-0 5-29 00:00: 00 01-21 04:59 :00 No [id number] 10mg Take 1 tablet by mouth in the morning for 10 days. [facility] iopamidol (ISOVUE 370-500 mL) injection 79 mL 11-01 18:54: 00 11-01 18:54 :00 No [id number] 79mL 79 mL, Intravenou s, ONCE, 1 dose, On Tue11/02/23 at 1415, Routine [facility] ketorolac (TORADOL) injection 30 mg 11-01 18:30: 00 11-01 18:37 :00 No 30mg 30 mg, Slow IV Push, ONCE, 1 dose, On Tue11/02/23 at 1330, Routine [facility] ondansetron (ZOFRAN (PF)) injection 4 mg 11-01 17:45: 00 11-01 18:37 :00 No 4mg 4 mg, Slow IV Push, ONCE, 1 dose, On Tue11/02/23 at 1245, OLIVE [facility] maalox:diph enhydrAMINE :lidocaine 2 % viscous 1:1:1 (FIRST-MOUT HWASH BLM) oral suspension 15 mL 11-01 17:45: 00 11-01 18:37 :00 No 15mL 15 mL, Oral, ONCE, 1 dose, On Tue11/02/23 at 1245, Routine [facility] NaCl 0.9% (NS) bolus infusion 2,000 mL 11-01 17:45: 00 11-01 19:48 :00 No 2000mL at 999 mL/hr, 2,000 mL, IV Piggyback, ONCE, 1 dose, On Tue11/02/23 at 1245, STAT [facility] ondansetron 4 mg disintegrat ing tablet 11-01 00:00: 00 Yes [id number] 4mg Take 1 tablet by mouth every 8 (eight) hours as needed for Nausea and Vomiting (N/V). [facility] pantoprazol e 40 mg EC tablet 11-01 00:00: 00 12-02 04:59 :00 No [id number] 40mg Take 1 tablet by mouth in the morning for 30 days. [facility] dicyclomine 20 mg tablet 11-01 00:00: 00 11-09 04:59 :00 No [id number] 20mg Take 1 tablet by mouth 4 (four) times daily for 7 days. [facility] docusate 100 mg capsule 12-16 00:00: 00 Yes [id number] 100mg Take 1 capsule by mouth in the morning and 1 capsule in the evening. [facility] polyethylen e glycol 3350 17 gram powder 12-16 00:00: 00 Yes [id number] 1{packe t} Take 1 Packet by mouth in the morning. [facility] HYDROcodone -acetaminop hen 7.5-325 mg per tablet 12 00:00: 00 Yes 1{tbl} Take 1 tablet by mouth every 8 (eight) hours as needed for Pain. [facility] ibuprofen 800 mg tablet 10-29 00:00: 00 Yes 800mg Take 1 tablet by mouth 3 (three) times daily as needed. [facility] proMETHazin e 25 mg tablet 10-29 00:00: 00 Yes 25mg Take 1 tablet by mouth 4 (four) times daily as needed. [facility] traMADoL 50 mg tablet 10-29 00:00: 00 Yes 50mg Take 1 tablet by mouth 3 (three) times daily as needed. [facility] cephALEXin 500 mg capsule 10-29 00:00: 00 12-16 00:00 :00 No 500mg Take 1 capsule by mouth 4 (four) times daily. x10 days [facility] No known medications 08-31 12:39: 17 No [facility] ferrous sulfate (IRON, FERROUS SULFATE,) 325 mg (65 mg iron) tablet 08-18 00:00: 00 08-24 00:00 :00 No [id number] 325mg Take 1 tablet by mouth 2 (two) times daily. [facility] docusate (COLACE) 100 mg capsule 08-18 00:00: 00 08-24 00:00 :00 No [id number] 100mg Take 1 capsule by mouth once daily as needed for Constipati on. [facility] ascorbic acid, vitamin C, 500 mg tablet 08-18 00:00: 00 08-24 00:00 :00 No [id number] 500mg Take 1 tablet by mouth daily. [facility] miSOPROStoL 200 mcg tablet 08-17 00:00: 00 08-24 00:00 :00 No [id number] 100 200ug Take 1 tablet by mouth SEE-INSTRU CTIONS. Take one tab the night before and one tab the morning of procedure [facility] Vital Signs Vital Name Observation Time Observation Value Comments S ource Systolic blood pressure 2024-01-11 21:30:00 128 mm[Hg] [facility] Diastolic blood pressure 2024-01-11 21:30:00 87 mm[Hg] [facility] Heart rate 2024-01-11 21:29:00 95 /min [facility] Body temperature 2024-01-11 21:29:00 36.78 Stephanie [facility] Respiratory rate 2024-01-11 21:29:00 18 /min [facility] Body height 2024-01-11 21:29:00 165.1 cm [facility] Body weight 2024-01-11 21:29:00 123.469 kg [facility] BMI 2024-01-11 21:29:00 45.30 kg/m2 [facility] Systolic blood pressure 2023-11-02 20:01:00 118 mm[Hg] [facility] Diastolic blood pressure 2023-11-02 20:01:00 73 mm[Hg] [facility] Heart rate 2023-11-02 20:01:00 92 /min [facility] Respiratory rate 2023-11-02 20:01:00 16 /min [facility] Oxygen saturation in Arterial blood by Pulse oximetry 2023-11-02 20:01:00 100 /min [facility] Body temperature 2023-11-02 18:37:00 37.72 Stephanie [facility] Body height 2023-11-02 17:13:00 165.1 cm [facility] Body weight 2023-11-02 17:13:00 122.471 kg [facility] BMI 2023-11-02 17:13:00 44.93 kg/m2 [facility] Systolic blood pressure 2022-12-16 13:31:00 94 mm[Hg] [facility] Diastolic blood pressure 2022-12-16 13:31:00 58 mm[Hg] [facility] Heart rate 2022-12-16 13:31:00 88 /min [facility] Body temperature 2022-12-16 13:31:00 36.56 Stephanie [facility] Respiratory rate 2022-12-16 13:31:00 18 /min [facility] Body height 2022-12-16 13:31:00 165.1 cm [facility] Body weight 2022-12-16 13:31:00 122.789 kg [facility] BMI 2022-12-16 13:31:00 45.05 kg/m2 [facility] Oxygen saturation in Arterial blood by Pulse oximetry 2022-12-16 13:31:00 97 /min [facility] Systolic blood pressure 2022-11-02 15:53:00 117 mm[Hg] [facility] Diastolic blood pressure 2022-11-02 15:53:00 76 mm[Hg] [facility] Heart rate 2022-11-02 15:53:00 89 /min [facility] Body temperature 2022-11-02 15:53:00 36.5 Stephanie [facility] Respiratory rate 2022-11-02 15:53:00 18 /min [facility] Body height 2022-11-02 15:53:00 165.1 cm [facility] Body weight 2022-11-02 15:53:00 123.152 kg [facility] BMI 2022-11-02 15:53:00 45.18 kg/m2 [facility] Oxygen saturation in Arterial blood by Pulse oximetry 2022-11-02 15:53:00 100 /min [facility] Systolic blood pressure 2021-08-31 18:31:00 131 mm[Hg] [facility] Diastolic blood pressure 2021-08-31 18:31:00 87 mm[Hg] [facility] Heart rate 2021-08-31 18:31:00 100 /min [facility] Body temperature 2021-08-31 18:31:00 37 Stephanie [facility] Respiratory rate 2021-08-31 18:31:00 18 /min [facility] Body height 2021-08-31 18:31:00 165.1 cm [facility] Body weight 2021-08-31 18:31:00 118.389 kg [facility] BMI 2021-08-31 18:31:00 43.43 kg/m2 [facility] Oxygen saturation in Arterial blood by Pulse oximetry 2021-08-31 18:31:00 99 /min [facility] Systolic blood pressure 2021-08-24 15:19:00 128 mm[Hg] [facility] Diastolic blood pressure 2021-08-24 15:19:00 85 mm[Hg] [facility] Heart rate 2021-08-24 15:19:00 93 /min [facility] Body temperature 2021-08-24 15:19:00 36.83 Stephanie [facility] Respiratory rate 2021-08-24 15:19:00 18 /min [facility] Body height 2021-08-24 15:19:00 165.1 cm [facility] Body weight 2021-08-24 15:19:00 118.389 kg [facility] BMI 2021-08-24 15:19:00 43.43 kg/m2 [facility] Procedures Procedure Date / Time Performed Performing Clinicia n Source POCT TEST 2024-01-11 00:00:00 Nicolasa Menezes [facility] CT ABDOMEN PELVIS W CONTRAST 2023-11-02 19:02:00 Kinza Venegas [facility] POCT TEST 2023-11-02 18:27:00 Heike Venegas [facility] LIPASE 2023-11-02 18:26:00 Kinza Venegas [facility] COMP. METABOLIC PANEL (03594) 2023-11-02 18:26:00 Kinza Venegas [facility] CBC WITH DIFF 2023-11-02 18:26:00 Kinza Venegas [facility] URINALYSIS 2023-11-02 18:26:00 Kinza Venegas [facility] LACTIC ACID WHOLE BLOOD 2023-11-02 18:24:00 Kinza Venegas [facility] CONSENT/REFUSAL FOR DIAGNOSIS AND TREATMENT 2023-11-02 16:53:57 Doctor Unassigned, [facility] ASSIGNMENT OF BENEFITS 2022-11-02 15:42:54 Docto r Unassigned, [facility] XR TIBIA FIBULA 2 VW LEFT 2021-08-31 18:56:00 Manjit Galvez [facility] XR ANKLE 3+ VW LEFT 2021-08-31 18:56:00 Manjit Galvez [facility] XR TIBIA FIBULA 2 VW LEFT 2021-08-31 18:56:00 Manjit Galvez [facility] DISCLOSURE AND CONSENT MEDICAL & SURGICAL PROCEDURES - FEMALM 2021-08-24 06:01:00 Doctor Unassigned, [facility] POCT TEST 2021-08-24 00:00:00 Irish Gan [facility] Encounters Start Date/Time End Date/Time Encounter Type Admission Type Attending Clinicians Care Facility Care Department Encounter ID Source 2021-06-11 23:46:29 Outpatient P [facility] JAMEY [id number] [facility] 2024-04-03 00:00:00 2024-04-04 11:31:36 Patient Secure MsKika Green [facility] 1.2.840.114 350.1.13.10 4.2.7.2.686 [id number] [facility] 2024-02-14 16:30:00 2024-02-14 16:30:00 Outpatient R NICOLASA MENEZES [facility] [id number] [facility] 2024-01-19 00:00:00 2024-01-19 00:00:00 Outpatient R NICOLASA MENEZES [facility] [id number] [facility] 2024-01-11 17:00:00 2024-01-11 17:15:00 Ship Superintendent Visit Pob, [facility] Main Nicolasa Menezes [facility] 1..840.114 350.1.13.10 4.2.7.2.686 [id number] [facility] 2024-01-11 16:30:00 2024-01-11 16:50:57 Outpatient R NICOLSAA MENEZES [facility] [id number] [facility] 2024-01-11 16:30:00 2024-01-11 16:50:57 Office Visit Nicolasa Menezes [facility] 1..840.114 350.1.13.10 4.2.7.2.686 [id number] [facility] 2023-11-22 00:00:00 2023-11-22 00:00:00 Patient Secure Msg Kika Zhang [facility] 1..840.114 350.1.13.10 4.2.7.2.686 [id number] [facility] 2023-11-02 12:17:00 2023-11-02 15:07:00 Emergency X KINZA VENEGAS [facility] ERT [id number] [facility] 2023-11-02 12:17:00 2023-11-02 15:07:00 Emergency Kinza Venegas [facility] 1..840.114 350.1.13.10 4.2.7.2.686 [id number] [facility] 2023-11-02 13:00:00 2023-11-02 13:00:00 Outpatient R [facility] [id number] [facility] 2023-05-10 00:00:00 2023-05-10 00:00:00 Patient Secure Msg Kika Zhang [facility] 1..840.114 350.1.13.10 4.2.7.2.686 [id number] [facility] 2023-01-11 00:00:00 2023-01-11 00:00:00 Outpatient R KIKA ZHANG [facility] [id number] [facility] 2023-01-05 00:00:00 2023-01-05 00:00:00 Patient Secure Msg GanIrish Theodore [facility] 1..840.114 350.1.13.10 4.2.7.2.686 [id number] [facility] 2022-12-28 00:00:00 2022-12-28 00:00:00 Outpatient R KIKA ZHANG [facility] [id number] [facility] 2022-12-23 00:00:00 2022-12-23 00:00:00 Patient Secure Msg Kika Zhang [facility] 1..840.114 350.1.13.10 4.2.7.2.686 [id number] [facility] 2022-12-16 08:40:00 2022-12-16 08:52:09 Outpatient R KIKA ZHANG [facility] [id number] [facility] 2022-12-16 08:40:00 2022-12-16 08:52:09 Office Visit Kika Zhang [facility] 1..840.114 350.1.13.10 4.2.7.2.686 [id number] [facility] 2022-11-24 11:30:00 2022-11-24 11:30:00 Outpatient R KIKA ZHANG [facility] [id number] [facility] 2022-11-02 10:45:00 2022-11-02 11:20:48 Outpatient R KIKA ZHANG [facility] [id number] [facility] 2022-11-02 10:45:00 2022-11-02 11:20:48 Office Visit Kika Zhang [facility] 1..840.114 350.1.13.10 4.2.7.2.686 [id number] [facility] 2022-11-02 00:00:00 2022-11-02 00:00:00 Orders Only Doctor Unassigned, [facility] 1..840.114 350.1.13.10 4.2.7.2.686 [id number] [facility] 2021-09-07 10:30:00 2021-09-07 10:30:00 Outpatient R IRISH GAN [facility] [id number] [facility] 2021-09-02 00:00:00 2021-09-02 00:00:00 Telephone Nurse, [facility] 1.2.840.114 350.1.13.10 4.2.7.2.686 [id number] [facility] 2021-09-01 00:00:00 2021-09-01 00:00:00 Telephone Manjit Galvez [facility] 1.2.840.114 350.1.13.10 4.2.7.2.686 [id number] [facility] 2021-08-31 12:43:11 2021-08-31 23:59:00 Hospital Encounter Manjit Galvez [facility] 1.2.840.114 350.1.13.10 4.2.7.2.686 [id number] [facility] 2021-08-31 12:43:10 2021-08-31 23:59:00 Hospital Encounter Leonor [facility] 1.2.840.114 350.1.13.10 4.2.7.2.686 [id number] [facility] 2021-08-31 12:20:00 2021-08-31 13:32:35 Outpatient R MANJIT GALVEZ [facility] [id number] [facility] 2021-08-31 12:20:00 2021-08-31 12:40:00 Urgent Care [facility] 1.2.840.114 350.1.13.10 4.2.7.2.686 [id number] [facility] 2021-08-28 00:00:00 2021-08-28 00:00:00 Outpatient R IRISH GAN [facility] [id number] [facility] 2021-08-24 09:00:00 2021-08-24 09:36:04 Outpatient R IRISH GAN [facility] [id number] [facility] 2021-08-24 09:00:00 2021-08-24 09:36:04 Office Visit Irish Gan [facility] 1.2.840.114 350.1.13.10 4.2.7.2.686 [id number] [facility] 2021-08-24 09:00:00 2021-08-24 09:36:04 Outpatient R IRISH GAN [facility] [id number] [facility] 2021-08-24 09:00:00 2021-08-24 09:00:00 Outpatient R IRISH GAN [facility] [id number] [facility] 2021-08-24 00:00:00 2021-08-24 00:00:00 Orders Only Doctor Unassigned, [place] [facility] 1.2.840.114 350.1.13.10 4.2.7.2.686 [id number] [facility] 2021-08-18 00:00:00 2021-08-18 00:00:00 Case Management Irish Gan [facility] 1.2.840.114 350.1.13.10 4.2.7.2.686 [id number] [facility] 2021-08-17 17:00:00 2021-08-17 17:15:00 Ship Superintendent Visit Pob, Adc Lab Main Irish Gan [facility] 1.2.840.114 350.1.13.10 4.2.7.2.686 [id number] [facility] 2021-08-17 17:00:00 2021-08-17 17:00:00 Outpatient R IRISH GAN [facility] [id number] [facility] 2021-08-17 15:00:00 2021-08-17 15:53:21 Office Visit Irish Gan [facility] 1.2.840.114 350.1.13.10 4.2.7.2.686 [id number] [facility] 2021-08-17 15:00:00 2021-08-17 15:53:21 Outpatient R IRISH GAN [facility] [id number] [facility] 2021-08-17 15:00:00 2021-08-17 15:53:21 Outpatient R IRISH GAN [facility] [id number] [facility] 2020-11-04 00:00:00 2020-11-04 00:00:00 Patient Outreach Luis Miguel Josef Mcculloughan [facility] 1..114 350.1.13.10 4.2.7.2.686 [id number] [facility] 2020-08-18 15:30:00 2020-08-18 15:30:00 Outpatient R JUAN CARLOS HEAVEN [facility] [id number] [facility] 2020-06-27 14:41:27 2020-06-27 15:57:11 Office Visit Robe Ny [facility] 1.114 350.1.13.10 4.2.7.2.686 [id number] 2020-06-27 14:41:27 2020-06-27 15:57:11 Office Visit Robe Ny Cas[facility] 1.0.114 350.1.13.10 4.2.7.2.686 [id number] [facility] 2020-06-27 14:30:00 2020-06-27 14:30:00 Outpatient R [place] RAPHAEL [facility] [id number] [facility] 2020-05-16 00:00:00 2020-05-16 00:00:00 Patient Secure Msg Doctor Unassigned, [place] [facility] 1..114 350.1.13.10 4.2.7.2.686 [id number] [facility] 2020-03-06 00:00:00 2020-03-06 00:00:00 Telephone Irish Gan [facility] Building 1.2.840.114 350.1.13.10 4.2.7.2.686 [id number] [facility] 2020-02-13 16:18:16 2020-02-13 16:45:01 Routine Visit Irish Gan [facility] Building 1.2.840.114 350.1.13.10 4.2.7.2.686 [id number] [facility] 2020-02-13 16:15:00 2020-02-13 16:15:00 Outpatient R IRISH GAN [facility] [id number] [facility] 2020-02-13 00:00:00 2020-02-13 00:00:00 Orders Only Doctor Unassigned, [place] [facility] 1.2.840.114 350.1.13.10 4.2.7.2.686 [id number] [facility] 2020-01-28 14:59:23 2020-01-28 15:37:31 Nurse Visit Nurse, [facility] Heaven Rangel [facility] Building 1.2.840.114 350.1.13.10 4.2.7.2.686 [id number] [facility] 2020-01-28 15:00:00 2020-01-28 15:00:00 Outpatient R [facility] [id number] [facility] 2020-01-28 00:00:00 2020-01-28 00:00:00 Refill Irish Gan [facility] Building 1.2.840.114 350.1.13.10 4.2.7.2.686 [id number] [facility] 2020-01-21 04:51:41 2020-01-23 12:15:00 Hospital Encounter Irish Gan [facility] 1.2840.114 350.1.13.10 4.2.7.2.686 [id number] [facility] 2020-01-21 00:00:00 2020-01-21 00:00:00 Telephone Shirin Baumann [facility] 1.2840.114 350.1.13.10 4.2.7.2.686 [id number] [facility] 2020-01-18 15:03:24 2020-01-18 15:18:24 Laboratory Only Only, Adc Test [facility] 1.2.840.114 350.1.13.10 4.2.7.2.686 [id number] [facility] 2020-01-18 14:45:00 2020-01-18 14:45:00 Outpatient R [facility] [id number] [facility] 2020-01-16 14:56:16 2020-01-16 15:26:02 Routine Visit [place] [facility] 1.2.840.114 350.1.13.10 4.2.7.2.686 [id number] [facility] 2020-01-16 13:45:00 2020-01-16 13:45:00 [facility] [id number] [facility] 2020-01-09 14:47:31 2020-01-09 16:47:07 Routine Visit [facility] 1.2.840.114 350.1.13.10 4.2.7.2.686 [id number] [facility] 2020-01-09 14:45:00 2020-01-09 14:45:00 [facility] [id number] [facility] 2020-01-08 00:00:00 2020-01-08 00:00:00 Telephone [place] [facility] 1.2.840.114 350.1.13.10 4.2.7.2.686 [id number] [facility] 2020-01-08 00:00:00 2020-01-08 00:00:00 Patient Secure Msg Doctor Unassigned, [facility] 1.2840.114 350.1.13.10 4.2.7.2.686 [id number] 134 [id number] [facility] 2020-01-03 16:31:30 2020-01-03 16:46:30 Ship Superintendent Visit Pob, Adc Lab Main Juan Carlos [facility] 1.840.114 350.1.13.10 4.2.7.2.686 [id number] [facility] 2020-01-03 15:35:52 2020-01-03 16:19:33 Routine Visit Heaven Rangel [facility] 1.284.114 350.1.13.10 4.2.7.2.686 [id number] 134 [id number] [facility] 2020-01-03 15:30:00 2020-01-03 15:30:00 Outpatient R HEAVEN RANGEL [facility] [id number] [facility] 2020-01-03 00:00:00 2020-01-03 00:00:00 Case Management Juan Carlos [facility] 1.2840.114 350.1.13.10 4.2.7.2.686 [id number] 134 [id number] [facility] 2020-01-03 00:00:00 2020-01-03 00:00:00 Orders Only Doctor Unassigned, [place] 1.284.114 350.1.13.10 4.2.7.2.686 [id number] [facility] 2019-12-28 00:00:00 2019-12-28 00:00:00 Patient Secure Msg Doctor Unassigned, [facility] 1.2.840.114 350.1.13.10 4.2.7.2.686 [id number] 134 [id number] [facility] 2019-12-16 00:00:00 2019-12-16 00:00:00 Patient Secure Msg Doctor Unassigned, [facility] 1.2.840.114 350.1.13.10 4.2.7.2.686 [id number] 134 [id number] [facility] 2019-12-13 08:23:23 2019-12-13 15:29:40 Telemedici ne Visit [place] [facility] 1.2.840.114 350.1.13.10 4.2.7.2.686 [id number] 134 [id number] [facility] 2019-12-13 15:15:00 2019-12-13 15:15:00 Outpatient R IRISH GAN [facility] [id number] [facility] 2019-11-29 12:59:55 2019-11-29 13:23:06 Routine Visit Juan Carlos [facility] 1.2.840.114 350.1.13.10 4.2.7.2.686 [id number] 134 [id number] [facility] 2019-11-29 13:00:00 2019-11-29 13:00:00 Outpatient R JUAN CARLOS HEAVEN [facility] [id number] [facility] 2019-11-29 11:17:02 2019-11-29 11:32:02 Ship Superintendent Visit 2, Adc Lab Andreaniecy [facility] 1.2.840.114 350.1.13.10 4.2.7.2.686 [id number] [facility] 2019-11-15 08:06:25 2019-11-15 15:22:47 Telemedici ne Visit [place] [facility] 1.2.840.114 350.1.13.10 4.2.7.2.686 [id number] 134 [id number] [facility] 2019-11-15 15:00:00 2019-11-15 15:00:00 Outpatient R MALIK IRISH [facility] [id number] [facility] 2019-11-14 15:15:00 2019-11-14 15:15:00 Outpatient R HEAVEN RANGEL [facility] [id number] [facility] 2019-11-13 00:00:00 2019-11-13 00:00:00 Patient Secure Msg Doctor Unassigned, [facility] 1.2.840.114 350.1.13.10 4.2.7.2.686 [id number] [facility] 2019-11-12 15:42:11 2019-11-12 15:57:11 Ship Superintendent Visit 2, Adc Lab [place] [facility] 1.2.840.114 350.1.13.10 4.2.7.2.686 [id number] [facility] 2019-11-12 15:45:00 2019-11-12 15:45:00 Outpatient R MALIK IRISH [facility] [id number] [facility] 2019-11-12 00:00:00 2019-11-12 00:00:00 Patient Secure Msg [place] [facility] 1.2.840.114 350.1.13.10 4.2.7.2.686 [id number] 134 [id number] [facility] 2019-11-12 00:00:00 2019-11-12 00:00:00 Orders Only Doctor Unassigned, [place] 1.2840.114 350.1.13.10 4.2.7.2.686 [id number] [facility] 2019-11-09 00:00:00 2019-11-09 00:00:00 Patient Secure Msg [facility] 1.2840.114 350.1.13.10 4.2.7.2.686 [id number] 134 [id number] [facility] 2019-11-06 00:00:00 2019-11-06 00:00:00 [facility] 1.2840.114 350.1.13.10 4.2.7.2.686 [id number] [facility] 2019-10-17 16:15:00 2019-10-17 16:15:00 Outpatient R HEAVEN RANGEL [facility] [id number] [facility] 2019-10-17 15:20:11 2019-10-17 16:08:19 Routine Visit Heaven Rangel [facility] 1.2840.114 350.1.13.10 4.2.7.2.686 [id number] [facility] 2019-10-17 00:00:00 2019-10-17 00:00:00 Orders Only Doctor Unassigned, [place] 1.2840.114 350.1.13.10 4.2.7.2.686 [id number] [facility] 2019-09-17 13:31:47 2019-09-17 14:04:16 Routine Visit Irish Gan [facility] 1.2840.114 350.1.13.10 4.2.7.2.686 [id number] [facility] Results Test Description Test Time Test Comments Results Result Co mments Source [id number] 21:28:00* Test Item Value Reference Range Interpretation Comme nts POCT PREG (test code = 1605) Negative On board controls acceptable with C Line (test code = 3574) Yes POCT PREG LOT # (test code = 3575) POCT PREG TEST DATE ( test code = 3576) [facility] ([id number])2023-11-02 19:33:47* Test Item Value Reference Range Interpretation Comme nts NA (test code = 0820725520) 138 mmol/L 135-145 K (test code = 5903623066) 3.9 mmol/L 3.5-5.0 CL (test code = 2348996004) 102 mmol/L 98-108 CO2 TOTAL (test code = 6202576699) 26 mmol/L 23-31 AGAP (test code = 0792707044) 10 2-16 BUN (test code = 6138337749) 9 mg/dL 7-23 GLUCOSE (test code = 0965764009) 96 mg/dL 70-110 CREATININE (test code = 2160-0) 0.76 mg/dL 0.50-1.04 TOTAL BILI (test code = 2841017621) 0.9 mg/dL 0.1-1.1 CALCIUM (test code = 7470820175) 9.0 mg/dL 8.6-10.6 T PROTEIN (test code = 1069276163) 8.5 g/dL 6.3-8.2 H ALBUMIN (test code = 3066482334) 4.5 g/dL 3.5-5.0 ALK PHOS (test code = 7045420754) 107 U/L 34-122 ALTv (test code = 1742-6) 20 U/L 5-35 AST(SGOT) (test code = 6858505592) 25 U/L 13-40 eGFR (test code = 65293-0) 107.6 mL/min/1.73m2 CKD-EPI eGFR (2020). Assuming creatinine has been stable day-to-day for at least three months, the eGFR indicates Category G1 (>= 90 mL/min/1.73 m2) Lab Interpretation (test code = 43543-1) [facility]normal [facility] 19:33:06* Test Item Value Reference Range Interpretation Comme nts LIPASE (test code = 7952546297) 43 U/L 0-220 Lab Interpretation (test cod e = 80669-7) Normal [facility] WITH [id number] 19:23:43* Test Item Value Reference Range Interpretation Comme nts WBC (test code = 6690-2) 12.64 4.30-11.10 H RBC (test code = 789-8) 4.91 3.93-5.25 HGB (test code = 718-7) 11.9 g/dL 11.6-15.0 HCT (test code = 4544-3) 39.1 % 35.7-45.2 MCV (test code = 787-2) 79.6 fL 80.6-95.5 L MCH (test code = 785-6) 24.2 pg 25.9-32.8 L MCHC (test code = 786-4) 30.4 g/dL 31.6-35.1 L RDW-SD (test code = 19294-9) 48.5 fL 39.0-49.9 RDW-CV (test code = 788-0) 16.8 % 12.0-15.5 H PLT (test code = 777-3) 423 166-358 H MPV (test code = 28072-5) 11.0 fL 9.5-12.9 NRBC/100 WBC (test code = 0255051159) 0.0 0.0-10.0 NRBC x10^3 (test code = 4098627432) See_Comment [Automated message] The system which generated this result transmitted reference range: 10*3/?L. The reference range was not used to interpret this result as normal/abnormal. GRAN MAT (NEUT) % (test code = 770-8) 84.7 % IMM GRAN % (test code = 0949632776) 0.30 % LYMPH % (test code = 736-9) 9.6 % MONO % (test code = 5905-5) 4.4 % EOS % (test code = 713-8) 0.6 % BASO % (test code = 706-2) 0.4 % GRAN MAT x10^3(ANC) (test code = 8998868614) 10.70 10*3/uL 1.88-7.09 H IMM GRAN x10^3 (test code = 1738057031) 0.04 10*3/uL 0.00-0.06 LYMPH x10^3 (test code = 731-0) 1.21 10*3/uL 1.32-3.29 L MONO x10^3 (test code = 742-7) 0.56 10*3/uL 0.33-0.92 EOS x10^3 (test code = 711-2) 0.08 10*3/uL 0.03-0.39 BASO x10^3 (test code = 704-7) 0.05 10*3/uL 0.01-0.07 Lab Interpretation (test code = 50855-6) Abnormal [facility] W [id number] 19:11:04CT Abdomen and Pelvis with intravenous contrast. CLINICAL HISTORY: Abdominal pain, acute nonlocalized. DOSE: Up-to-date CT equipment and radiation dose reduction techniques wereemployed. CTDIvol: ?16.83 mGy. DLP: 952.59 mGy-cm. TECHNIQUE : Contiguous axial imaging from the level of the lung basesthrough the pubic symphysis were performed after the uncomplicatedadministration of nonionic contrast material. ?Coronal and sagittalreconstructions were obtained. Auto mA and/or iterative reconstruction wereused to reduce radiation dose. FINDINGS: ? Lower lungs: Possible 5 mm pleural base incompletely visualized nodule inthe left lingula segment on series #2, image #1. No pleural effusion or pericardial effusion. No hiatal hernia. Liver, Gallbladder and Spleen: Liver is 16.3 cm and spleen is 13.2x 5.2 cmin size. No focal lesions visualized in the liver or in the spleen.Cholecystectomy clips are seen. Biliary ducts and the pancreatic ductappear to be of normal size. Peritoneum: ?No free air or free fluid. No lymphadenopathy. Pancreas and Adrenals: ?Unremarkable pancreas and adrenal glands. Kidneys and Ureters: ?No visible calculi in the renal collecting systems.Right kidneys collecting system and and the right ureter appears slightlydilated without any obstructing stone visualized.. Vessels: Normal. Retroperitoneum: No abnormal fluid or lymphadenopathy. Bowel: ?No acute findings. Normal appendix visualized. Mild diverticulosisof the sigmoid and distal descending colon noted without any acute changesof diverticulitis. Bladder and Reproductive Organs: ?Physiologic changes of bilateral ovariancysts, largest of 2.2 cm in the left ovary. No CT evidence of ovariantorsion. No free fluid in the pelvis. Possible 10 mm fibroid in theposterior subsidence portion of the fundus of the uterus. Bones: ?Normal. Soft tissues: Normal. CONCLUSION: No acute findings detected in CT scan of abdomen and pelvis.Cholecystectomy noted.[facility] [id number] 18:27:00* Test Item Value Reference Range Interpretation Comme nts POCT PREG (test code = 1605) Negative On board controls acceptable with C Line (test code = 3574) Yes POCT PREG LOT # (test code = 3575) [id number] POCT PREG TEST DATE ( test code = 3576) 09/19/2024 Lab Interpretation (test cod e = 31913-7) Normal [facility] [id number] 15:16:00* Test Item Value Reference Range Interpretation Comme nts POCT PREG (test code = 1605) Negative On board controls acceptable with C Line (test code = 3574) Yes POCT PREG LOT # (test code = 3575) POCT PREG TEST DATE ( test code = 3576) [facility] [id number] 15:16:00* Test Item Value Reference Range Interpretation Comme nts POCT PREG (test code = 1605) Negative On board controls acceptable with C Line (test code = 3574) Yes POCT PREG LOT # (test code = 3575) POCT PREG TEST DATE ( test code = 3576) [facility] Notes Date/Time Note Provider Source 2024-01-11 17:00:00 Images from the original note were not included. Venipuncture collection performed by clean technique on the left forearm(s). Total of 1 attempts were made. Slight pressure and a bandage/dressing were applied to the site(s). The patient experienced no complications. The following specimens were processed according to instructions and sent to [facility] laboratories per lab order on 01/11/2024 : LT BLUE 3 SST RED 1 LAV PPT DK GREEN (LiHep) DK GREEN (SodH) MCMULLEN DK BLUE (K2) DK BLUE (S) ACD Blood Culture NIPT/NTD [facility] 2023-11-22 15:57:58 Please review and advise. [facility] 2023-11-02 15:07:34 PT D/C home. GCS15, VS stable. Given D/C paperwork. Pt ambulatory at time of discharge. Pt educated on med usage, follow up care, s/s worsening condition, need for hydration. Pt verbalized understanding. Pt ambulated from ED in [facility] T [facility] 2023-11-02 12:12:41 Pt presents with epigastric pain and nausea that began around 3am. Pt states she already had her gallbladder removed and only gets relief with lying down. Pt hypertensive and tachycardic during triage T Ro Valenzuela RN [facility]
[2024-07-09] MEDS ORDERED: KETOROLAC 30 MG/ML INJ ONE (10:23)
[2024-07-09] MEDS ORDERED: NA CHLORIDE 0.9% 1,000 ML ONE (10:23)
[2024-07-09] MEDS ORDERED: ONDANSETRON 4 MG/2 ML VIAL ONE ×2 (10:23→11:30)
[2024-07-09] MEDS ORDERED: FAMOTIDINE 20 MG/2 ML VIAL IV ONE (10:23)
[2024-07-09 10:31] LABS: Absolute Eosinophils 0.1 K/uL (0-0.5); Absolute Lymphocytes (CBC) 0.7 K/uL (0.7-4.9); Absolute Monocytes 0.8 K/uL (0.1-1.3); Absolute Neutrophil 12.4 K/uL (1.8-8.0); Basophils % 0.3 % (0-1.3); Eosinophils % 0.6 % (0-4.4); Hematocrit 39.5 % (36.0-45.0); Hemoglobin 12.8 g/dL (12.0-15.0); Lymphocytes % 5.2 % (15.3-44.8); MCH 27.7 pg (27.0-35.0); MCHC 32.5 g/dL (32.0-36.0); MCV 85.3 fL (80-100); MPV 8.6 fL (7.6-11.3); Monocytes % 5.7 % (3.3-12.3); Neutrophils % 88.2 % (41.7-73.7); Platelets 356 thou/uL (152-406); RBC Red Blood Cell Count 4.63 M/uL (3.86-4.86); Red Cell Distribution Width 16.5 % (12.1-15.2)
[2024-07-09 10:53] LABS: Albumin 3.7 g/dL (3.4-5.0); Albumin/Globulin Ratio 0.9 (1.1-1.8); Anion Gap 6.8 mEq/L (5.0-15.0); Bilirubin Total 0.6 mg/dL (0.2-1.0); Globulin 3.9 g/dL (2.3-3.5); Potassium 3.8 mEq/L (3.5-5.1); Protein, Total 7.6 g/dL (6.4-8.2)
[2024-07-09 10:53] LABS: Specific Gravity 1.017 (1.005-1.030)
[2024-07-09 10:54] LABS: Specific Gravity 1.017 (1.005-1.030); Sqamous Epithelial <5 /HPF (None Seen); Urine Bacteria None Seen /HPF (<20); Urine Bilirubin NEGATIVE (Negative); Urine Blood Negative (Negative); Urine Clarity Turbid (Clear); Urine Color Light-Yellow (Yellow); Urine Culture Reflex Order NOT NEEDED; Urine Glucose NEGATIVE (Negative); Urine Ketones NEGATIVE (Negative); Urine Microscopic Reflex YN ORDER UMIC; Urine Nitrite NEGATIVE (Negative); Urine Protein NEGATIVE (Negative); Urine RBC None Seen /HPF (None Seen); Urine Urobilinogen Normal (Normal); Urine WBC <5 /HPF (<5); Urine Yeast (Budding) Trace /HPF (None Seen)
--- NOTE | 2024-07-09 11:23 | RAD REPORT ---
EXAMINATION: CT ABDOMEN AND PELVIS WITH CONTRAST CLINICAL INDICATION: Abdominal pain TECHNIQUE: CT abdomen and pelvis was performed, after the administration of 100 cc Isovue-300.. Sagit karissa and coronal reconstructions were obtained. One or more of the following dose reduction techniques were used: Automated exposure control, adjustment of the mA and kV according to patient si ze, and iterative reconstruction. Unless otherwise specified, incidental findings do not require dedicated imaging follow-up. [id number]. Oral contrast was not given which limits evaluation of bowel and appendix. COMPARISON: .2022 FINDINGS: Liver, spleen, pancreas, adrenals and kidneys appear unremarkable No evidence of diverticulitis. Cholecystectomy. Normal appendix. No adnexal mass. Small umbilical hernia. 1 cm subserosal fibroid : IMPRESSION: No acute abnormality displayed
[2024-07-09] MEDS ORDERED: MAGNES/ALUMIN/SIMET 30ML UCUP ONE (11:30)
[2024-07-09] MEDS ORDERED: PANTOPRAZOLE 40 MG INJ ONE (11:30)
[2024-07-09] MEDS ORDERED: LIDOCAINE VISCOUS 2% 10ML ORAL SOLN ONE (11:31)
[2024-07-09 12:10] LABS: Blood Morphology Comment NOT SEEN (NOT SEEN); Platelet Estimate ADEQ; White Blood Cell Scan OK (OK)
--- NOTE | 2024-07-09 12:19 | ER ---
Nurse's Notes [facility] Name: Barbie Mancilla Age: 34 yrs Sex: Female : 1990 Arrival Date: 07/09/2024 Time: 09:38 Bed 13 Private MD: Diagnosis: Epigastric pain;Nausea Presentation: 07/09 09:59 Chief complaint: Patient states: RUQ pain radiating around to back since this morning, aa5 also reports nausea. Coronavirus screen: At this time, the client does not indicate any symptoms associated with coronavirus-19. Ebola Screen: Patient denies travel to an Ebola-affected area in the 21 days before illness onset. Initial Sepsis Screen: Does the patient meet any 2 criteria? No. Patient's initial sepsis screen is negative. Does the patient have a suspected source of infection? No. Patient's initial sepsis screen is negative. Risk Assessment: Do you want to hurt yourself or someone else? Patient reports no desire to harm self or others. Onset of symptoms was June 2024. 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 - Infectious Disease History:: Denies. - Social history:: Smoking status: unknown. Screenin:47 [facility] ED Fall Risk Assessment (Adult) History of falling in the last 3 months, tm6 including since admission No falls in past 3 months (0 pts) Confusion or Disorientation No (0 pts) Intoxicated or Sedated No (0 pts) Impaired Gait No (0 pts) Mobility Assist Device Used No (0 pt) Altered Elimination No (0 pt) Score/Fall Risk Level 0 - 2 = Low Risk Oriented to surroundings, Maintained a safe environment, Educated pt \T\ family on fall prevention, incl call for assistance when getting out of bed. Abuse screen: Denies threats or abuse. Denies injuries from another. Nutritional screening: No deficits noted. Tuberculosis screening: No symptoms or risk factors identified. Assessment: 10:47 General: Appears in no apparent distress. Behavior is calm, cooperative. Pain: tm6 Complains of pain in epigastric area, posterior aspect of right lateral abdomen, anterior aspect of right lateral abdomen and right upper quadrant Pain currently is 7 out of 10 on a pain scale. Neuro: Level of Consciousness is awake, alert, obeys commands, Oriented to person, place, time, situation. Cardiovascular: Patient's skin is warm and dry. Respiratory: Airway is patent Respiratory effort is even, unlabored, Respiratory pattern is regular, symmetrical. GI: Abdomen is round Bowel sounds present X 4 quads. Abd is soft Abd is non tender Reports upper abdominal pain, nausea. : No signs and/or symptoms were reported regarding the genitourinary system. EENT: No signs and/or symptoms were reported regarding the EENT system. Derm: No signs and/or symptoms reported regarding the dermatologic system. Musculoskeletal: No signs and/or symptoms reported regarding the musculoskeletal system. 11:48 Reassessment: Patient and/or family updated on plan of care and expected duration. Pain tm6 level reassessed. Patient is alert, oriented x 3, equal unlabored respirations, skin warm/dry/pink. Vital Signs: 09:59 BP 127 / 81; Pulse 118; Resp 18 S; Temp 98.8(O); Pulse Ox 98% on R/A; aa5 10:47 BP 134 / 91; Pulse 104; Resp 19; Pulse Ox 96% on R/A; MAP 103 mmHg; tm6 11:45 BP 106 / 68; Pulse 101; Resp 18; Temp 98.8; Pulse Ox 100% on R/A; MAP 82 mmHg; Pain tm6 4/10; 12:20 BP 121 / 68; Pulse 92; Resp 17; Temp 98.4; Pulse Ox 100% ; me1 11:45 Pain Scale: Adult tm6 ED Course: 09:40 Patient arrived in ED. im 09:41 Raheem Figueredo PA is PHCP. cp 09:41 Raheem Cedeno MD is Attending Physician. cp 09:59 Arm band placed on. aa5 10:00 Triage completed. aa5 10:20 CBC with Diff Sent. cc6 10:20 CMP Sent. cc6 10:21 Lipase Sent. cc6 10:21 Inserted saline lock: 20 gauge in right antecubital area, using aseptic technique. cc6 Blood collected. Flushed with 10 mL NS. 10:21 Initial lab(s) drawn, by tn, sent to lab. cc6 10:47 Dmitri Garcia, RN is Primary Nurse. tm6 10:47 Patient has correct armband on for positive identification. Bed in low position. Call tm6 light in reach. Side rails up X 1. Provided Education on: use of call orta. Client placed on continuous cardiac and pulse oximetry monitoring. NIBP monitoring applied. Pulse ox on. NIBP on. Door closed. Noise minimized. Warm blanket given. 10:47 Urinalysis w/ reflexes Sent. tm6 10:47 Test, Urine Sent. tm6 11:07 CT Abd/Pelvis - IV Contrast Only In Process Unspecified. EDMS 12:17 Artis Serrato MD is Referral Physician. cp 12:18 [place] Enamorado, REN is Primary Nurse. me1 12:30 No provider procedures requiring assistance completed. IV discontinued, intact, me1 bleeding controlled, No redness/swelling at site. Pressure dressing applied. Administered Medications: 10:30 Drug: Famotidine IVP 20 mg IVP once; dilute with 10 mL 0.9% NaCl; give over 2 minutes kc6 Route: IVP; Site: right antecubital; 11:27 Follow up: Response: No adverse reaction; No change in condition tm6 10:30 Drug: TORadol - Ketorolac IVP 15 mg IVP once Route: IVP; Site: right antecubital; kc6 11:27 Follow up: Response: No adverse reaction; Pain is unchanged, physician notified tm6 10:30 Drug: Ondansetron IVP 4 mg IVP once; over 2 minutes Route: IVP; Site: right antecubital;kc6 11:27 Follow up: Response: No adverse reaction; No change in condition tm6 10:30 Drug: NS 0.9% IV 1000 ml IV at 1 bolus Per protocol; to be given as a bolus over 60 kc6 minutes Route: IV; Rate: 1 bolus; Site: right antecubital; 12:19 Follow up: Response: No adverse reaction; IV Status: Completed infusion; IV Intake: me1 1000ml 11:37 Drug: GI Cocktail without - (Maalox PO 30 ml, Lidocaine Mucous Membrane 2 % 15 tm6 ml) PO once Route: PO; 12:19 Follow up: Response: No adverse reaction; Pain is decreased me1 11:37 Drug: Pantoprazole IVP 40 mg IVP once Route: IVP; Site: right antecubital; tm6 12:19 Follow up: Response: No adverse reaction me1 11:37 Drug: Ondansetron IVP 4 mg IVP once; over 2 minutes Route: IVP; Site: right antecubital;tm6 12:19 Follow up: Response: No adverse reaction; Nausea is decreased me1 Medication: 10:47 VIS not applicable for this client. tm6 Intake: 12:19 IV: 1000ml; Total: 1000ml. me1 Outcome: 12:18 Discharge ordered by MD. cp 12:30 Discharged to home ambulatory, tn1 12:30 Condition: stable 12:30 Discharge instructions given to patient, Instructed on discharge instructions, follow up and referral plans. medication usage, Demonstrated understanding of instructions, follow-up care, medications, Prescriptions given X 2, 12:30 Patient left the ED. me1 Signatures: Dispatcher [employer] Jolie Baca, RN RN aa5 Raheem Figueredo, IVORY PA Caty Alcantar, RN RN kc6 Janelle Whitfield Michelle, RN RN me1 Dmitri Garcia RN RN tm6 Bailey Valadez cc6
--- NOTE | 2024-07-09 12:19 | EDPHYS ---
Physician Documentation [facility] Name: Barbie Mancilla Age: 34 yrs Sex: Female : 1990 Arrival Date: 07/09/2024 Time: 09:38 Bed 13 Private MD: NA Physician Raheem Cedeno HPI: 07/09 10:04 This 34 yrs old Female presents to ER via Ambulatory with complaints of Abdominal Pain, cp Doesn't Feel Right. 10:04 The patient presents with abdominal pain in the epigastric area. cp 10:04 Onset: The symptoms/episode began/occurred this morning. The symptoms radiate to right cp back. Associated signs and symptoms: Pertinent positives: nausea, Pertinent negatives: constipation, diarrhea, dysuria, fever, headache, hematuria, vomiting. 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 - Infectious Disease History:: Denies. - Social history:: Smoking status: unknown. ROS: 10:10 Constitutional: Negative for body aches, chills, fever, poor PO intake, cp 10:10 Cardiovascular: Negative for chest pain, palpitations, cp 10:10 Respiratory: Negative for cough, shortness of breath, wheezing, 10:10 Abdomen/GI: Positive for abdominal pain, nausea, Negative for vomiting, diarrhea, constipation, Exam: 10:15 Constitutional: The patient appears in no acute distress, alert, awake, non-toxic, well cp developed, well nourished, obese, uncomfortable, 10:15 Head/Face: Normocephalic, atraumatic. cp 10:15 Eyes: Periorbital structures: appear normal, Conjunctiva: normal, no exudate, no injection, Sclera: no appreciated abnormality, Lids and lashes: appear normal, bilaterally, 10:15 ENT: External ear(s): are unremarkable, Nose: is normal, Mouth: Lips: moist, Oral mucosa: moist, Posterior pharynx: Airway: no evidence of obstruction, patent, 10:15 Chest/axilla: Inspection: normal, 10:15 Cardiovascular: Rate: tachycardic, Rhythm: regular, 10:15 Respiratory: the patient does not display signs of respiratory distress, Respirations: normal, no use of accessory muscles, no retractions, labored breathing, is not present, Breath sounds: are clear throughout, no decreased breath sounds, no stridor, no wheezing, 10:15 Abdomen/GI: Inspection: abdomen appears normal, Bowel sounds: active, all quadrants, Palpation: soft, in all quadrants, moderate abdominal tenderness, in the epigastric area, rebound tenderness, is not appreciated, involuntary guarding, is not appreciated, 10:15 Back: CVA tenderness, is absent, Vital Signs: 09:59 BP 127 / 81; Pulse 118; Resp 18 S; Temp 98.8(O); Pulse Ox 98% on R/A; aa5 10:47 BP 134 / 91; Pulse 104; Resp 19; Pulse Ox 96% on R/A; MAP 103 mmHg; tm6 11:45 BP 106 / 68; Pulse 101; Resp 18; Temp 98.8; Pulse Ox 100% on R/A; MAP 82 mmHg; Pain tm6 4/10; 12:20 BP 121 / 68; Pulse 92; Resp 17; Temp 98.4; Pulse Ox 100% ; me1 11:45 Pain Scale: Adult tm6 MDM: 09:42 Medical Screening Exam initiated cp 11:00 Differential diagnosis: appendicitis, gastritis, gastroesophageal reflux disease, GI cp Bleed, non-specific abd pain, pancreatitis, Peptic Ulcer Disease, Perf. Duodenal Ulcer, Perf. Gastric Ulcer. 12:18 Data reviewed: vital signs, nurses notes, lab test result(s), radiologic studies, CT cp scan, and as a result, I will discharge patient. 12:18 I considered the following discharge prescriptions or medication management in the emergency department Medications were administered in the Emergency Department. See MAR. Counseling: I had a detailed discussion with the patient and/or guardian regarding the historical points, exam findings, and any diagnostic results supporting the discharge/admit diagnosis, lab results, radiology results, to return to the emergency department if symptoms worsen or persist or if there are any questions or concerns that arise at home. Response to treatment: the patient's symptoms have mildly improved after treatment, and as a result, I will discharge patient. Special discussion: Based on the patient's Hx, exam, and Dx evaluation, there is no indication for emergent surgery or inpatient Tx. It is understood by the patient/guardian that if the Sx's persist or worsen they need to return immediately for re-evaluation. 07/09 10:02 Order name: CBC with Diff; Complete Time: 12:21 cp 07/09 10:36 Interpretation: Normal except: WBC 14.10; RDW 16.5; ELVIS% 88.2; LYM% 5.2; NEUT A 12.4. cp 07/09 10:02 Order name: CMP; Complete Time: 11:23 cp 07/09 11:42 Interpretation: Normal except: GLUC 116; GLOB 3.9; A/G 0.9. cp 07/09 10:02 Order name: Lipase; Complete Time: 11:23 cp 07/09 10:02 Order name: Test, Urine; Complete Time: 11:23 cp 07/09 10:02 Order name: Urinalysis w/ reflexes; Complete Time: 11:23 cp 07/09 11:43 Interpretation: Normal except: [facility] Turbid. cp 07/09 12:10 Order name: CBC Smear Scan; Complete Time: 12:21 EDMS 07/09 10:28 Order name: CT Abd/Pelvis - IV Contrast Only; Complete Time: 11:24 cp 07/09 10:02 Order name: IV Saline Lock; Complete Time: 10:20 cp 07/09 10:02 Order name: Labs collected and sent; Complete Time: 10:20 cp Administered Medications: 10:30 Drug: Famotidine IVP 20 mg IVP once; dilute with 10 mL 0.9% NaCl; give over 2 minutes kc6 Route: IVP; Site: right antecubital; 11:27 Follow up: Response: No adverse reaction; No change in condition tm6 10:30 Drug: TORadol - Ketorolac IVP 15 mg IVP once Route: IVP; Site: right antecubital; kc6 11:27 Follow up: Response: No adverse reaction; Pain is unchanged, physician notified tm6 10:30 Drug: Ondansetron IVP 4 mg IVP once; over 2 minutes Route: IVP; Site: right antecubital;kc6 11:27 Follow up: Response: No adverse reaction; No change in condition tm6 10:30 Drug: NS 0.9% IV 1000 ml IV at 1 bolus Per protocol; to be given as a bolus over 60 kc6 minutes Route: IV; Rate: 1 bolus; Site: right antecubital; 12:19 Follow up: Response: No adverse reaction; IV Status: Completed infusion; IV Intake: me1 1000ml 11:37 Drug: GI Cocktail without - (Maalox PO 30 ml, Lidocaine Mucous Membrane 2 % 15 tm6 ml) PO once Route: PO; 12:19 Follow up: Response: No adverse reaction; Pain is decreased me1 11:37 Drug: Pantoprazole IVP 40 mg IVP once Route: IVP; Site: right antecubital; tm6 12:19 Follow up: Response: No adverse reaction me1 11:37 Drug: Ondansetron IVP 4 mg IVP once; over 2 minutes Route: IVP; Site: right antecubital;tm6 12:19 Follow up: Response: No adverse reaction; Nausea is decreased me1 Disposition: 07/10 09:22 Chart complete. cp Disposition Summary: 07/09/24 12:18 Discharge Ordered Notes: Location: Home cp Problem: new cp Symptoms: have improved cp Condition: Stable cp Diagnosis - Epigastric pain cp - Nausea cp Followup: cp - With: Artis Serrato MD - When: 1 week - Reason: pain continues Discharge Instructions: - Discharge Summary Sheet cp - Abdominal Pain, Adult cp - Nausea, Adult cp Forms: - Medication Reconciliation Form cp - Antibiotic Education cp - Prescription Opioid Use cp - Patient Portal Instructions cp - Leadership Thank You Letter cp Prescriptions: - Protonix 40 mg Oral Tablet - take 1 tablet ORAL route once daily; 30 tablet; Refills: 0, Product Selection cp Permitted - Zofran 4 mg Oral Tablet - take 1 tablet ORAL route every 12 hours As needed; 20 tablet; Refills: 0, cp Product Selection Permitted Signatures: Dispatcher [facility] Jolie Baca RN RN aa5 Raheem Figueredo PA PA cp Caty Hough RN RN kc6 Dmitri Garcia RN RN tm6 [place] Enamorado RN me1 Corrections: (The following items were deleted from the chart) 07/09 10:03 10:03 CBC+H.LAB.BRZ ordered. EDMS EDMS 10:03 10:03 COMPREHENSIVE METABOLIC PANEL+C.LAB.BRZ ordered. EDMS EDMS 10:03 10:03 LIPASE+C.LAB.BRZ ordered. EDMS EDMS 10:03 10:03 Test, Urine+UC.LAB.BRZ ordered. EDMS EDMS 10:03 10:03 Urinalysis+U.LAB.BRZ ordered. EDMS EDMS
[2024-07-09 14:56] VITALS: O2SAT 100
[2024-07-09 14:57] VITALS: BP 121/68; TEMP 98.4
== END 2024-07-09 12:30 | disposition home or self-care (01) ==
LOC: ER 09:38
DX: R10.13 Epigastric pain (principal); R11.0 Nausea
CPT/HCPCS: 85025; 81001; 36415; 81025; 83690; 80053; 74177; Q9967; J2470; J2405 ×2; J7030; 96361; 96374; 96375; 99284

== ENCOUNTER 2024-11-06 08:52 | Emergency (ER) | payer OTHER, SELFPAY ==
--- OUTSIDE RECORDS SUMMARY | 2024-11-06 08:57 | XMS REPORT | Continuity of Care Document ---
Author Name Unknown Address [address] [facility] [address] [place] [address] [facility] Address [address] [facility] [place] [address] Care Team Providers Care Pharmaceutical Worker Name Role Phone Pcp, Patient Does Not Have A Primary Care Physic kera Salina Jett Attending Clinician Unavailable Kika Zhang MD Attending Clinician NICOLASA MENEZES Attending Clinician Unavailable Pob, [facility] Lab Main Attending Clinician UnavailKika Maguire MD Attending Clinician KINZA VENEGAS Attending Clinician Unavaila Kinza Henley Attending Clinician [phone] KIKA ZHANG Attending Clinician Meeta Irish Baldwin MD Attending Clinician [phone] Doctor Unassigned, [place] Attending Clinician U IRISH Najera Attending Clinician Unavailable Nurse, [facility] Attending Clinician Un available Manjit Galvez PA-C Attending Clinician [phone] MANJIT GALVEZ Attending Clinician Unavailable Lucia Alvarez MD Attending Clinician [phone] Josef Bolanos DO Attending Clinician [phone] HEAVEN RANGEL Attending Clinician Unavailable Ny Jimenez Attending Clinician [place] RAPHAEL Attending Clinician Unavailable Nurse, [facility] Attending Clinician Un available Heaven Rangel PA-C Attending Clinician [phone] Pastor MCCLURE, Shirin Sotomayor Attending Clinician Unavaila ble Only, Adc Test Attending Clinician Unavailable 2, [facility] Lab Attending Clinician Unavailable IRISH GAN Admitting Clinician Unavailable KINZA VENEGAS Admitting Clinician Unavaila ethel Gan MD, Irish Jaimes Admitting Clinician [phone] Payers Payer Name Policy Type Policy Number Effective Date Expirati on Date Source [employer] MEDICAID [id number] 2016 00:00:00 Problems Condition Name Condition Details Condition Category Status Onset Date Resolution Date Last Treatment Date Treating Clinician Comments Source Previous section Previous section Disease Active 2018-08 00:00: 00 [facility] Morbid obesity with body mass index of 40.0-49.9 Morbid obesity with body mass index of 40.0-49.9 Disease Active 2018-08 2 00:00: 00 [facility] 39 weeks gestation of 39 weeks gestation of Disease Resolve d 2019-0 6-08 00:00: 00 2020-02-13 00:00:00 2020-02-13 16:47:55 [facility] Liveborn , of [place] , born in hospital by delivery Liveborn infant, of [place] , born in hospital by delivery Disease Resolve d 2019- 6-08 00:00: 00 2020-02-13 00:00:00 2020-02-13 15:43:13 [facility] Other back pain, unspecifie d chronicity Other back pain, unspecifie d chronicity Disease Resolve d 2019- 4-02 00:00: 00 2020-02-13 00:00:00 2020-02-13 16:47:59 [facility] High-risk in third trimester High-risk in third trimester Disease Resolve d 2019- 2-03 00:00: 2020-02-13 00:00:00 2020-02-13 15:43:13 [facility] Status post bilateral salpingect brandon Status post bilateral salpingect brandon Disease Resolve d 2018-08 00:00: 00 2020-02-13 00:00:00 2020-02-13 15:43:13 [facility] 38 weeks gestation of 38 weeks gestation of Disease Resolve d 2018-08 00:00: 00 2020-01-21 00:00:00 2020-01-21 07:18:34 [facility] Second trimester Second trimester Disease Resolve d 2018-08 00:00: 00 2019-09-17 00:00:00 2019-09-17 14:03:48 [facility] Allergies, Adverse Reactions, Alerts Allergy Name Allergy Type Status Severity Reaction(s) Onset Date Inactive Date Treating Clinician Comments Source NO KNOWN ALLERGIE S Drug Class Active [facility] Social History Social Habit Start Date Stop Date Quantity Comments Source [facility] History of Social function 2024-01-11 00:00:00 2024-01-11 00:00:00 [facility] Alcohol intake 2023-11-02 00:00:00 2023-11-02 00:00:00 Ex-drinker (finding) [facility] Exposure to SARS-CoV-2 (event) 2022-12-06 00:00:00 2022-12-16 08:27:00 Not sure [facility] Tobacco use and exposure 2019-07-18 00:00:00 2019-07-18 00:00:00 Smokeless tobacco non-user [facility] Alcoholic beverage intake 2019-07-18 00:00:00 2019-07-18 00:00:00 Ex-drinker (finding) [facility] Sex assigned at 1990 00:00:00 1990 00:00:00 [facility] Smoking Status Start Date Stop Date Source Never smoked tobacco [facility] Medications Ordered Medication Name Filled Medication Name Start Date Stop Date Current Medication? Ordering Clinician Indication Dosage Frequency Signature (SIG) Comments Components Source medroxyPROG ESTERone (PROVERA) 10 mg tablet 01-10:00: 00 01-21 04:59 :00 No [id number] 10mg Take 1 tablet by mouth in the morning for 10 days. [facility] iopamidol (ISOVUE 370-500 mL) injection 79 mL 11-01 18:54: 00 11-01 18:54 :00 No [id number] 79mL 79 mL, Intravenou s, ONCE, 1 dose, On Tue11/02/23 at 1415, Routine [facility] ketorolac (TORADOL) injection 30 mg 11-01 18:30: 00 11-01 18:37 :00 No 30mg 30 mg, Slow IV Push, ONCE, 1 dose, On Tue11/02/23 at 1330, Routine [facility] ondansetron (ZOFRAN (PF)) injection 4 mg 11-01 17:45: 00 11-01 18:37 :00 No 4mg 4 mg, Slow IV Push, ONCE, 1 dose, On Tue11/02/23 at 1245, OLIVE [facility] maalox:diph enhydrAMINE :lidocaine 2 % viscous 1:1:1 (FIRST-MOUT HWASH BLM) oral suspension 15 mL 11-01 17:45: 00 11-01 18:37 :00 No 15mL 15 mL, Oral, ONCE, 1 dose, On Tue11/02/23 at 1245, Routine [facility] NaCl 0.9% (NS) bolus infusion 2,000 mL 11-01 17:45: 00 11-01 19:48 :00 No 2000mL at 999 mL/hr, 2,000 mL, IV Piggyback, ONCE, 1 dose, On Tue11/02/23 at 1245, STAT [facility] ondansetron 4 mg disintegrat ing tablet 11-01 00:00: 00 Yes [id number] 4mg Take 1 tablet by mouth every 8 (eight) hours as needed for Nausea and Vomiting (N/V). [facility] pantoprazol e 40 mg EC tablet 11-01 00:00: 00 12-02 04:59 :00 No [id number] 40mg Take 1 tablet by mouth in the morning for 30 days. [facility] dicyclomine 20 mg tablet 11-01 00:00: 00 11-09 04:59 :00 No [id number] 20mg Take 1 tablet by mouth 4 (four) times daily for 7 days. [facility] docusate 100 mg capsule 12-16 00:00: 00 Yes [id number] 100mg Take 1 capsule by mouth in the morning and 1 capsule in the evening. [facility] polyethylen e glycol 3350 17 gram powder 12-16 00:00: 00 Yes [id number] 1{packe t} Take 1 Packet by mouth in the morning. [facility] HYDROcodone -acetaminop hen 7.5-325 mg per tablet 12 00:00: 00 Yes 1{tbl} Take 1 tablet by mouth every 8 (eight) hours as needed for Pain. [facility] ibuprofen 800 mg tablet 10-29 00:00: 00 Yes 800mg Take 1 tablet by mouth 3 (three) times daily as needed. [facility] proMETHazin e 25 mg tablet 10-29 00:00: 00 Yes 25mg Take 1 tablet by mouth 4 (four) times daily as needed. [facility] traMADoL 50 mg tablet 10-29 00:00: 00 Yes 50mg Take 1 tablet by mouth 3 (three) times daily as needed. [facility] cephALEXin 500 mg capsule 10-29 00:00: 00 12-16 00:00 :00 No 500mg Take 1 capsule by mouth 4 (four) times daily. x10 days [facility] No known medications 08-31 12:39: 17 No [facility] ferrous sulfate (IRON, FERROUS SULFATE,) 325 mg (65 mg iron) tablet 08-18 00:00: 00 08-24 00:00 :00 No [id number] 325mg Take 1 tablet by mouth 2 (two) times daily. [facility] docusate (COLACE) 100 mg capsule 08-18 00:00: 00 08-24 00:00 :00 No [id number] 100mg Take 1 capsule by mouth once daily as needed for Constipati on. [facility] ascorbic acid, vitamin C, 500 mg tablet 08-18 00:00: 00 08-24 00:00 :00 No [id number] 500mg Take 1 tablet by mouth daily. [facility] miSOPROStoL 200 mcg tablet 08-17 00:00: 00 08-24 00:00 :00 No [id number] 100 200ug Take 1 tablet by mouth SEE-INSTRU CTIONS. Take one tab the night before and one tab the morning of procedure [facility] Vital Signs Vital Name Observation Time Observation Value Comments S ource Systolic blood pressure 2024-01-11 21:30:00 128 mm[Hg] [facility] Diastolic blood pressure 2024-01-11 21:30:00 87 mm[Hg] [facility] Heart rate 2024-01-11 21:29:00 95 /min [facility] Body temperature 2024-01-11 21:29:00 36.78 Stephanie [facility] Respiratory rate 2024-01-11 21:29:00 18 /min [facility] Body height 2024-01-11 21:29:00 165.1 cm [facility] Body weight 2024-01-11 21:29:00 123.469 kg [facility] BMI 2024-01-11 21:29:00 45.30 kg/m2 [facility] Systolic blood pressure 2023-11-02 20:01:00 118 mm[Hg] [facility] Diastolic blood pressure 2023-11-02 20:01:00 73 mm[Hg] [facility] Heart rate 2023-11-02 20:01:00 92 /min [facility] Respiratory rate 2023-11-02 20:01:00 16 /min [facility] Oxygen saturation in Arterial blood by Pulse oximetry 2023-11-02 20:01:00 100 /min [facility] Body temperature 2023-11-02 18:37:00 37.72 Stepahnie [facility] Body height 2023-11-02 17:13:00 165.1 cm [facility] Body weight 2023-11-02 17:13:00 122.471 kg [facility] BMI 2023-11-02 17:13:00 44.93 kg/m2 [facility] Systolic blood pressure 2022-12-16 13:31:00 94 mm[Hg] [facility] Diastolic blood pressure 2022-12-16 13:31:00 58 mm[Hg] [facility] Heart rate 2022-12-16 13:31:00 88 /min [facility] Body temperature 2022-12-16 13:31:00 36.56 Stephanie [facility] Respiratory rate 2022-12-16 13:31:00 18 /min [facility] Body height 2022-12-16 13:31:00 165.1 cm [facility] Body weight 2022-12-16 13:31:00 122.789 kg [facility] BMI 2022-12-16 13:31:00 45.05 kg/m2 [facility] Oxygen saturation in Arterial blood by Pulse oximetry 2022-12-16 13:31:00 97 /min [facility] Systolic blood pressure 2022-11-02 15:53:00 117 mm[Hg] [facility] Diastolic blood pressure 2022-11-02 15:53:00 76 mm[Hg] [facility] Heart rate 2022-11-02 15:53:00 89 /min [facility] Body temperature 2022-11-02 15:53:00 36.5 Stephanie [facility] Respiratory rate 2022-11-02 15:53:00 18 /min [facility] Body height 2022-11-02 15:53:00 [facility] 2022-11-02 15:53:00 123.152 kg [facility] BMI 2022-11-02 15:53:00 45.18 kg/m2 [facility] Oxygen saturation in Arterial blood by Pulse oximetry 2022-11-02 15:53:00 100 /min [facility] Systolic blood pressure 2021-08-31 18:31:00 131 mm[Hg] [facility] Diastolic blood pressure 2021-08-31 18:31:00 87 mm[Hg] [facility] Heart rate 2021-08-31 18:31:00 100 /min [facility] Body temperature 2021-08-31 18:31:00 37 Stephanie [facility] Respiratory rate 2021-08-31 18:31:00 18 /min [facility] Body height 2021-08-31 18:31:00 165.1 cm [facility] Body weight 2021-08-31 18:31:00 118.389 kg [facility] BMI 2021-08-31 18:31:00 43.43 kg/m2 [facility] Oxygen saturation in Arterial blood by Pulse oximetry 2021-08-31 18:31:00 99 /min [facility] Systolic blood pressure 2021-08-24 15:19:00 128 mm[Hg] [facility] Diastolic blood pressure 2021-08-24 15:19:00 85 mm[Hg] [facility] Heart rate 2021-08-24 15:19:00 93 /min [facility] Body temperature 2021-08-24 15:19:00 36.83 Stephanie [facility] Respiratory rate 2021-08-24 15:19:00 18 /min [facility] Body height 2021-08-24 15:19:00 165.1 cm [facility] Body weight 2021-08-24 15:19:00 118.389 kg [facility] BMI 2021-08-24 15:19:00 43.43 kg/m2 [facility] Procedures Procedure Date / Time Performed Performing Clinicia n Source POCT TEST 2024-01-11 00:00:00 Nicolasa Menezes [facility] CT ABDOMEN PELVIS W CONTRAST 2023-11-02 19:02:00 Kinza Venegas [facility] POCT TEST 2023-11-02 18:27:00 Heike Venegas [facility] LIPASE 2023-11-02 18:26:00 Kniza Venegas U [facility] COMP. METABOLIC PANEL (05161) 2023-11-02 18:26:00 Kinza Venegas [facility] CBC WITH DIFF 2023-11-02 18:26:00 Kinza Venegas [facility] URINALYSIS 2023-11-02 18:26:00 Kinza Venegas [facility] LACTIC ACID WHOLE BLOOD 2023-11-02 18:24:00 Kinza Venegas [facility] CONSENT/REFUSAL FOR DIAGNOSIS AND TREATMENT 2023-11-02 16:53:57 Doctor Unassigned, [place] [facility] ASSIGNMENT OF BENEFITS 2022-11-02 15:42:54 Docto r Unassigned, [place] [facility] XR TIBIA FIBULA 2 VW LEFT 2021-08-31 18:56:00 Manjit Galvez [facility] XR ANKLE 3+ VW LEFT 2021-08-31 18:56:00 Manjit Gavlez [facility] XR TIBIA FIBULA 2 VW LEFT 2021-08-31 18:56:00 Manjit Galvez [facility] DISCLOSURE AND CONSENT MEDICAL & SURGICAL PROCEDURES - FEMALM 2021-08-24 06:01:00 Doctor Unassigned, [place] [facility] POCT TEST 2021-08-24 00:00:00 Irish Gan [facility] Encounters Start Date/Time End Date/Time Encounter Type Admission Type Attending Clinicians Care Facility Care Department Encounter ID Source 2021-06-11 23:46:29 Outpatient P [facility] JAMEY [id number] [facility] 2019-07-26 00:00:00 2024-09-29 03:05:58 Orders Only Salina Jett Rebekah [facility] 1..840.114 350.1.13.10 4.2.7.2.686 [id number] [facility] 2024-04-03 00:00:00 2024-04-04 11:31:36 Patient Secure Msg Kika Zhang Priya [facility] 1..840.114 350.1.13.10 4.2.7.2.686 [id number] [facility] 2024-02-14 16:30:00 2024-02-14 16:30:00 Outpatient R NICOLASA MENEZES [facility] [id number] [facility] 2024-01-19 00:00:00 2024-01-19 00:00:00 Outpatient R NICOLASA MENEZES [facility] [id number] [facility] 2024-01-11 17:00:00 2024-01-11 17:15:00 Foundry Hand Visit Pob, Adc Lab Main Pedro PablohienNicolasa rodriguez [facility] NAL BUILD[facility] 1..840.114 350.1.13.10 4.2.7.2.686 [id number] [facility] 2024-01-11 16:30:00 2024-01-11 16:50:57 Outpatient R NICOLASA MENEZES [facility] [id number] [facility] 2024-01-11 16:30:00 2024-01-11 16:50:57 Office Visit Nicolasa Menezes [facility] NAL BUILDING 1..840.114 350.1.13.10 4.2.7.2.686 [id number] [facility] 2023-11-22 00:00:00 2023-11-22 00:00:00 Patient Secure Msg Kika Zhang Priya [facility] 1.2.840.114 350.1.13.10 4.2.7.2.686 [id number] [facility] 2023-11-02 12:17:00 2023-11-02 15:07:00 Emergency X KINZA VENEGAS [facility] ERT [id number] [facility] 2023-11-02 12:17:00 2023-11-02 15:07:00 Emergency Kinza Venegas F [facility] 1.2.840.114 350.1.13.10 4.2.7.2.686 [id number] [facility] 2023-11-02 13:00:00 2023-11-02 13:00:00 Outpatient R [facility] [id number] [facility] 2023-05-10 00:00:00 2023-05-10 00:00:00 Patient Secure Msg Kika Zhang [facility] 1.2.840.114 350.1.13.10 4.2.7.2.686 [id number] [facility] 2023-01-11 00:00:00 2023-01-11 00:00:00 Outpatient R KIKA ZHANG [facility] [id number] [facility] 2023-01-05 00:00:00 2023-01-05 00:00:00 Patient Secure Msg Irish Gan [facility] PROFESSIO NAL BUILDING 1.2.840.114 350.1.13.10 4.2.7.2.686 [id number] [facility] 2022-12-28 00:00:00 2022-12-28 00:00:00 Outpatient R KIKA ZHANG [facility] [id number] [facility] 2022-12-23 00:00:00 2022-12-23 00:00:00 Patient Secure Msg Kika Zhang [facility] 1.840.114 350.1.13.10 4.2.7.2.686 [id number] [facility] 2022-12-16 08:40:00 2022-12-16 08:52:09 Outpatient R KIKA ZHANG [facility] [id number] [facility] 2022-12-16 08:40:00 2022-12-16 08:52:09 Office Visit Kika Zhang [facility] OFFICE BUILD[facility] 1.840.114 350.1.13.10 4.2.7.2.686 [id number] [facility] 2022-11-24 11:30:00 2022-11-24 11:30:00 Outpatient R KIKA ZHANG [facility] [id number] [facility] 2022-11-02 10:45:00 2022-11-02 11:20:48 Outpatient R KIKA ZHANG [facility] [id number] [facility] 2022-11-02 10:45:00 2022-11-02 11:20:48 Office Visit Kika Zhang [facility] 1.840.114 350.1.13.10 4.2.7.2.686 [id number] [facility] 2022-11-02 00:00:00 2022-11-02 00:00:00 Orders Only Doctor Unassigned, [place] [facility] 1.840.114 350.1.13.10 4.2.7.2.686 [id number] [facility] 2021-09-07 10:30:00 2021-09-07 10:30:00 Outpatient R IRISH GAN [facility] [id number] [facility] 2021-09-02 00:00:00 2021-09-02 00:00:00 Telephone Nurse, [facility] YASMIN?ANJANA [facility] MEDICAL OFFICE BUILDING 1.2.840.114 350.1.13.10 4.2.7.2.686 [id number] [facility] 2021-09-01 00:00:00 2021-09-01 00:00:00 Telephone Manjit Galvez [facility] YASMIN?ANJANA [facility] MED[facility] OFFICE BUILDING 1.2.840.114 350.1.13.10 4.2.7.2.686 [id number] [facility] 2021-08-31 12:43:11 2021-08-31 23:59:00 Hospital Encounter Manjit Galvez [facility] YASMIN?ANJANA [facility] MED[facility] OFFICE BUILDING 1.2.840.114 350.1.13.10 4.2.7.2.686 [id number] [facility] 2021-08-31 12:43:10 2021-08-31 23:59:00 Hospital Encounter Manjit Galvez [facility] YASMIN?[facility] 1.2.840.114 350.1.13.10 4.2.7.2.686 [id number] [facility] 2021-08-31 12:20:00 2021-08-31 13:32:35 Outpatient R MANJIT GALVEZ [facility] [id number] [facility] 2021-08-31 12:20:00 2021-08-31 12:40:00 Urgent Care Manjit Galvez Amanda [facility] MEDICAL OFFICE BUILDING 1.2.840.114 350.1.13.10 4.2.7.2.686 [id number] [facility] 2021-08-28 00:00:00 2021-08-28 00:00:00 Outpatient IRISH LIGHT [facility] [id number] [facility] 2021-08-24 09:00:00 2021-08-24 09:36:04 Outpatient R IRISH GAN [facility] [id number] [facility] 2021-08-24 09:00:00 2021-08-24 09:36:04 Office Visit Irish Gan [facility] BUILDING 1.2840.114 350.1.13.10 4.2.7.2.686 [id number] [facility] 2021-08-24 09:00:00 2021-08-24 09:36:04 Outpatient R MALIK [facility] [id number] [facility] 2021-08-24 09:00:00 2021-08-24 09:00:00 [facility] [id number] [facility] 2021-08-24 00:00:00 2021-08-24 00:00:00 Orders Only Doctor Unassigned, [place] [facility] 1..114 350.1.13.10 4.2.7.2.686 [id number] [facility] 2021-08-18 00:00:00 2021-08-18 00:00:00 Case Management Irish Gan [facility] BUILDING 1.84.114 350.1.13.10 4.2.7.2.686 [id number] [facility] 2021-08-17 17:00:00 2021-08-17 17:15:00 Foundry Hand Visit Pob, Adc Lab Main Irish Gan [facility] BUILDING 1.2.114 350.1.13.10 4.2.7.2.686 [id number] [facility] 2021-08-17 17:00:00 2021-08-17 17:00:00 Outpatient R IRISH GAN [facility] [id number] [facility] 2021-08-17 15:00:00 2021-08-17 15:53:21 [facility] 1.840.114 350.1.13.10 4.2.7.2.686 [id number] [facility] 2021-08-17 15:00:00 2021-08-17 15:53:21 Outpatient R MALIK IRISH [facility] [id number] [facility] 2021-08-17 15:00:00 2021-08-17 15:53:21 Outpatient R GAN [facility] [id number] [facility] 2020-11-04 00:00:00 2020-11-04 00:00:00 Patient Outreach Josef Bolanos [facility] 1.840.114 350.1.13.10 4.2.7.2.686 [id number] [facility] 2020-08-18 15:30:00 2020-08-18 15:30:00 Outpatient R HEAVEN RANGEL [facility] [id number] [facility] 2020-06-27 14:41:27 2020-06-27 15:57:11 Office Visit Ny Raphael [facility] Office Building One 1.84.114 350.1.13.10 4.2.7.2.686 [id number] 2020-06-27 14:41:27 2020-06-27 15:57:11 Office Visit Ny Raphael [facility] Office Building [facility] 1.84.114 350.1.13.10 4.2.7.2.686 [id number] [facility] 2020-06-27 14:30:00 2020-06-27 14:30:00 Outpatient R [place] RAPHAEL [facility] [id number] [facility] 2020-05-16 00:00:00 2020-05-16 00:00:00 Patient Secure Msg Doctor Unassigned, [place] [facility] 1.2.840.114 350.1.13.10 4.2.7.2.686 [id number] [facility] 2020-03-06 00:00:00 2020-03-06 00:00:00 Telephone Irish Gan [facility] 1.2840.114 350.1.13.10 4.2.7.2.686 [id number] [facility] 2020-02-13 16:18:16 2020-02-13 16:45:01 Routine Visit Irish Gan [facility] 1.2.840.114 350.1.13.10 4.2.7.2.686 [id number] [facility] 2020-02-13 16:15:00 2020-02-13 16:15:00 Outpatient R IRISH GAN [facility] [id number] [facility] 2020-02-13 00:00:00 2020-02-13 00:00:00 Orders Only Doctor Unassigned, [place] [facility] 1.284.114 350.1.13.10 4.2.7.2.686 [id number] [facility] 2020-01-28 14:59:23 2020-01-28 15:37:31 Nurse Visit Nurse, [facility] Heaven Rangel [facility] 1.2.84.114 350.1.13.10 4.2.7.2.686 [id number] [facility] 2020-01-28 15:00:00 2020-01-28 15:00:00 Outpatient R [facility] [id number] [facility] 2020-01-28 00:00:00 2020-01-28 00:00:00 Refill Irish Gan [facility] 1.2.840.114 350.1.13.10 4.2.7.2.686 [id number] 134 [id number] [facility] 2020-01-21 04:51:41 2020-01-23 12:15:00 Hospital Encounter Irish Gan [facility] 1.2.840.114 350.1.13.10 4.2.7.2.686 [id number] [facility] 2020-01-21 00:00:00 2020-01-21 00:00:00 Telephone Shirin Baumann [facility] 1.2.840.114 350.1.13.10 4.2.7.2.686 [id number] [facility] 2020-01-18 15:03:24 2020-01-18 15:18:24 Laboratory Only Only, Adc Test Irish Gan [facility] Building 1.2.840.114 350.1.13.10 4.2.7.2.686 [id number] [facility] 2020-01-18 14:45:00 2020-01-18 14:45:00 Outpatient R [facility] [id number] [facility] 2020-01-16 14:56:16 2020-01-16 15:26:02 Routine Visit Irish Gan [facility] Building 1.2.840.114 350.1.13.10 4.2.7.2.686 [id number] [facility] 2020-01-16 13:45:00 2020-01-16 13:45:00 Outpatient R IRISH GAN [facility] [id number] [facility] 2020-01-09 14:47:31 2020-01-09 16:47:07 Routine Visit Irish Gan [facility] Building 1.2.840.114 350.1.13.10 4.2.7.2.686 [id number] 134 [id number] [facility] 2020-01-09 14:45:00 2020-01-09 14:45:00 Outpatient R IRISH GAN [facility] [id number] [facility] 2020-01-08 00:00:00 2020-01-08 00:00:00 Telephone Irish Gan Theodore [facility] Building 1.2.840.114 350.1.13.10 4.2.7.2.686 [id number] 134 [id number] [facility] 2020-01-08 00:00:00 2020-01-08 00:00:00 Patient Secure Msg Doctor Unassigned, [place] [facility] 1.2.840.114 350.1.13.10 4.2.7.2.686 [id number] 134 [id number] [facility] 2020-01-03 16:31:30 2020-01-03 16:46:30 Foundry Hand Visit Pob, Adc Lab Main Oscar Heaven [facility] Building 1.2.840.114 350.1.13.10 4.2.7.2.686 [id number] [facility] 2020-01-03 15:35:52 2020-01-03 16:19:33 Routine Visit Oscar Heaven [facility] 1.2.840.114 350.1.13.10 4.2.7.2.686 [id number] [facility] 2020-01-03 15:30:00 2020-01-03 15:30:00 Outpatient R HEAVEN RANGEL [facility] [id number] [facility] 2020-01-03 00:00:00 2020-01-03 00:00:00 Case Management Oscar Heaven [facility] 1.2.840.114 350.1.13.10 4.2.7.2.686 [id number] [facility] 2020-01-03 00:00:00 2020-01-03 00:00:00 Orders Only Doctor Unassigned, [place] [facility] 1.2.840.114 350.1.13.10 4.2.7.2.686 [id number] [facility] 2019-12-28 00:00:00 2019-12-28 00:00:00 Patient Secure Msg Doctor Unassigned, [place] [facility] 1.2840.114 350.1.13.10 4.2.7.2.686 [id number] [facility] 2019-12-16 00:00:00 2019-12-16 00:00:00 Patient Secure Msg Doctor Unassigned, [place] [facility] 1.2840.114 350.1.13.10 4.2.7.2.686 [id number] 134 [id number] [facility] 2019-12-13 08:23:23 2019-12-13 15:29:40 Telemedici ne Visit Irish Gan [facility] 1.2.840.114 350.1.13.10 4.2.7.2.686 [id number] 134 [id number] [facility] 2019-12-13 15:15:00 2019-12-13 15:15:00 Outpatient R IRISH GAN [facility] [id number] [facility] 2019-11-29 12:59:55 2019-11-29 13:23:06 Routine Visit Heaven Rangel [facility] 1.2.840.114 350.1.13.10 4.2.7.2.686 [id number] 134 [id number] [facility] 2019-11-29 13:00:00 2019-11-29 13:00:00 Outpatient R HEAVEN RANGEL [facility] [id number] [facility] 2019-11-29 11:17:02 2019-11-29 11:32:02 Foundry Hand Visit 2, Adc Lab Oscar Heaven [facility] Building 1..840.114 350.1.13.10 4.2.7.2.686 [id number] [facility] 2019-11-15 08:06:25 2019-11-15 15:22:47 Telemedici ne Visit Irish Gan [facility] 1.2.840.114 350.1.13.10 4.2.7.2.686 [id number] [facility] 2019-11-15 15:00:00 2019-11-15 15:00:00 Outpatient R MALIK IRISH [facility] [id number] [facility] 2019-11-14 15:15:00 2019-11-14 15:15:00 [id number] 2019-11-13 00:00:00 2019-11-13 00:00:00 Patient Secure Msg Doctor Unassigned, [place] [facility] 1..840.114 350.1.13.10 4.2.7.2.686 [id number] 134 [id number] [facility] 2019-11-12 15:42:11 2019-11-12 15:57:11 Foundry Hand Visit 2, Adc Lab Irish Gan [facility] 1..840.114 350.1.13.10 4.2.7.2.686 [id number] [facility] 2019-11-12 15:45:00 2019-11-12 15:45:00 Outpatient R IRISH GAN [facility] [id number] [facility] 2019-11-12 00:00:00 2019-11-12 00:00:00 Patient Secure Msg Irish Gan [facility] Building 1.2840.114 350.1.13.10 4.2.7.2.686 [id number] [facility] 2019-11-12 00:00:00 2019-11-12 00:00:00 Orders Only Doctor Unassigned, [place] [facility] 1.2840.114 350.1.13.10 4.2.7.2.686 [id number] [facility] 2019-11-09 00:00:00 2019-11-09 00:00:00 Patient Secure Irish Mar[facility] n[facility] Building 1.2840.114 350.1.13.10 4.2.7.2.686 [id number] [facility] 2019-11-06 00:00:00 2019-11-06 00:00:00 Patient Secure g Irish Gan [facility] 1.20.114 350.1.13.10 4.2.7.2.686 [id number] [facility] 2019-10-17 16:15:00 2019-10-17 16:15:00 Outpatient R HEAVEN RANGEL [facility] [id number] [facility] 2019-10-17 15:20:11 2019-10-17 16:08:19 Routine Visit Heaven Rangel [facility] Building 1.20.114 350.1.13.10 4.2.7.2.686 [id number] [facility] 2019-10-17 00:00:00 2019-10-17 00:00:00 Orders Only Doctor Unassigned, [place] [facility] 1.20.114 350.1.13.10 4.2.7.2.686 [id number] [facility] 2019-09-17 13:31:47 2019-09-17 14:04:16 Routine Visit Irish Gan [facility] Clarita Cannon [facility] 1.2.840.114 350.1.13.10 4.2.7.2.686 [id number] 134 [id number] [facility] Results Test Description Test Time Test Comments Results Result Co mments Source [facility] [id number] 21:28:00* Test Item Value Reference Range Interpretation Comme nts POCT PREG (test code = 1605) Negative On board controls acceptable with C Line (test code = 3574) Yes POCT PREG LOT # (test code = 3575) POCT PREG TEST DATE ( test code = 3576) [facility]OL[facility] PAN[facility] (20740)2023-11-02 19:33:47* Test Item Value Reference Range Interpretation Comme nts NA (test code = 4846137950) 138 mmol/L 135-145 K (test code = 7912759743) 3.9 mmol/L 3.5-5.0 CL (test code = 3176058481) 102 mmol/L 98-108 CO2 TOTAL (test code = 3345857601) 26 mmol/L 23-31 AGAP (test code = 7437806459) 10 2-16 BUN (test code = 8756606008) 9 mg/dL 7-23 GLUCOSE (test code = 6663010992) 96 mg/dL 70-110 CREATININE (test code = 2160-0) 0.76 mg/dL 0.50-1.04 TOTAL BILI (test code = 2469794800) 0.9 mg/dL 0.1-1.1 CALCIUM (test code = 8402674753) 9.0 mg/dL 8.6-10.6 T PROTEIN (test code = 6194468666) 8.5 g/dL 6.3-8.2 H ALBUMIN (test code = 0379541721) 4.5 g/dL 3.5-5.0 ALK PHOS (test code = 7367698978) 107 U/L 34-122 ALTv (test code = 1742-6) 20 U/L 5-35 AST(SGOT) (test code = 5630241106) 25 U/L 13-40 eGFR (test code = 29072-9) 107.6 mL/min/1.73m2 CKD-EPI eGFR (2020). Assuming creatinine has been stable day-to-day for at least three months, the eGFR indicates Category G1 (>= 90 mL/min/1.73 m2) Lab Interpretation (test code = 49197-4) Abnormal [facility]24-[facility]-20 19:33:06* Test Item Value Reference Range Interpretation Comme nts LIPASE (test code = 4210215282) 43 U/L 0-220 Lab Interpretation (test cod e = 99035-7) Normal [facility] WITH [id number] 19:23:43* Test Item Value Reference Range Interpretation [...] g/dL 31.6-35.1 L RDW-SD (test code = 21689-4) 48.5 fL 39.0-49.9 RDW-CV (test code = 788-0) 16.8 % 12.0-15.5 H PLT (test code = 777-3) 423 166-358 H MPV (test code = 09309-6) 11.0 fL 9.5-12.9 NRBC/100 WBC (test code = 7150700126) 0.0 0.0-10.0 NRBC x10^3 (test code = 3564244091) See_Comment [Automated message] The system which generated this result transmitted reference range: 10*3/?L. The reference range was not used to interpret this result as normal/abnormal. GRAN MAT (NEUT) % (test code = 770-8) 84.7 % IMM GRAN % (test code = 7553326019) 0.30 % LYMPH % (test code = 736-9) 9.6 % MONO % (test code = 5905-5) 4.4 % EOS % (test code = 713-8) 0.6 % BASO % (test code = 706-2) 0.4 % GRAN MAT x10^3(ANC) (test code = 1042874053) 10.70 10*3/uL 1.88-7.09 H IMM GRAN x10^3 (test code = 8751219738) 0.04 10*3/uL 0.00-0.06 LYMPH x10^3 (test code = 731-0) 1.21 10*3/uL 1.32-3.29 L MONO x10^3 (test code = 742-7) 0.56 10*3/uL 0.33-0.92 EOS x10^3 (test code = 711-2) 0.08 10*3/uL 0.03-0.39 BASO x10^3 (test code = 704-7) 0.05 10*3/uL 0.01-0.07 Lab Interpretation (test code = 14574-7) Abnormal [facility] W [id number] 19:11:04CT Abdomen and Pelvis with intravenous contrast. [...] in CT scan of abdomen and pelvis.Cholecystectomy noted.[facility] [id number] 18:27:00* Test Item Value Reference Range Interpretation Comme [facility] POCT PREG (test code = 1605) Negative On board controls acceptable with C Line (test code = 3574) Yes POCT PREG LOT # (test code = 3575) 640204 POCT PREG TEST DATE ( test code = 3576) 09/19/2024 Lab Interpretation (test cod e = 60681-7) Normal [facility] [id number] 15:16:00* Test Item Value Reference Range Interpretation Comme [facility] POCT PREG (test code = 1605) Negative On board controls acceptable with C Line (test code = 3574) Yes POCT PREG LOT # (test code = 3575) POCT PREG TEST DATE ( test code = 3576) [facility] [id number] 15:16:00* Test Item Value Reference Range Interpretation Comme nts POCT PREG (test code = 1605) Negative On board controls acceptable with C Line (test code = 3574) Yes POCT PREG LOT # (test code = 3575) POCT PREG TEST DATE ( test code = 3576) [facility] Notes Date/Time Note Provider Source 2024-01-11 17:00:00 Images from the original note were not included. Venipuncture collection performed by clean technique on the left forearm(s). Total of 1 attempts were made. Slight pressure and a bandage/dressing were applied to the site(s). The patient experienced no complications. The following specimens were processed according to instructions and sent to [facility] laboratories per lab order on 01/11/2024 : LT BLUE 3 SST RED 1 LAV PPT DK GREEN (LiHep) DK GREEN (SodH) MCMULLEN DK BLUE (K2) DK BLUE (S) ACD Blood Culture NIPT/NTD T [facility] 2023-11-22 15:57:58 Please review and advise. T [facility] 2023-11-02 15:07:34 PT D/C home. GCS15, VS stable. Given D/C paperwork. Pt ambulatory at time of discharge. Pt educated on med usage, follow up care, s/s worsening condition, need for hydration. Pt verbalized understanding. Pt ambulated from ED in [facility] T [facility] 2023-11-02 12:12:41 Pt presents with epigastric pain and nausea that began around 3am. Pt states she already had her gallbladder removed and only gets relief with lying down. Pt hypertensive and tachycardic during triage T Ro Valenzuela RN [facility]
[2024-11-06] MEDS ORDERED: ALBUTEROL 2.5 MG/3 ML NEB SOL ONE (09:31)
[2024-11-06] MEDS ORDERED: IPRATROPIUM BROM 0.5MG/2.5ML ONE (09:31)
[2024-11-06 10:04] LABS: Absolute Eosinophils 0.1 K/uL (0-0.5); Absolute Monocytes 0.5 K/uL (0.1-1.3); Absolute Neutrophil 3.5 K/uL (1.8-8.0); Anion Gap 9.4 mEq/L (5.0-15.0); Basophils % 0.7 % (0-1.3); Eosinophils % 2.7 % (0-4.4); Hematocrit 39.9 % (36.0-45.0); Hemoglobin 13.5 g/dL (12.0-15.0); Lymphocytes % 19.4 % (15.3-44.8); MCH 29.9 pg (27.0-35.0); MCHC 33.9 g/dL (32.0-36.0); MCV 88.1 fL (80-100); Monocytes % 10.4 % (3.3-12.3); Neutrophils % 66.8 % (41.7-73.7); Nucleated Red Blood Cells % 0.2 % (0-0); Platelets 271 thou/uL (152-406); Potassium 3.4 mEq/L (3.5-5.1); RBC Red Blood Cell Count 4.53 M/uL (3.86-4.86); Red Cell Distribution Width 15.6 % (12.1-15.2)
--- NOTE | 2024-11-06 10:04 | RAD REPORT ---
EXAM: Chest Single View HISTORY: 34 years Female COUGH COMPARISON: None. FINDINGS: LUNGS/PLEURA: The lungs are clear. No pleural effusions or pneumothorax. No pulmonary edema. CARDIAC/MEDIASTINUM: The cardiac silhouette is within normal limits. UPPER ABDOMEN: No significant abnormality. BONES: No acute abnormality. LINES/TUBES/OTHER: N/A IMPRESSION: No evidence of acute cardiopulmonary disease.
--- NOTE | 2024-11-06 10:13 | EDPHYS ---
Physician Documentation [facility] Name: Barbie Mancilla Age: 34 yrs Sex: Female : 1990 Arrival Date: 11/06/2024 Time: 08:52 Bed 8 Private MD: ED Physician Jewel Yanes HPI: 11/06 09:15 This 34 yrs old Female presents to ER via Ambulatory with complaints of Chest ec2 Tightness, Wheezing, Congestion, Cough. 09:15 Patient arrives today for evaluation of chest tightness and shortness of breath as well ec2 as occasional cough. Patient reports 4 days of symptoms. Patient reports no history of COPD or asthma. Reports no nausea or vomiting, denies any fevers.. 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 - Infectious Disease History:: Denies. - Social history:: Smoking status: Patient denies any tobacco usage or history of. ROS: 09:15 Constitutional: as per hpi ec2 Exam: 09:15 Constitutional: GEN: NAD Head: atraumatic Eyes: EOMI Ears: External ears are ec2 normal. CV: Tachycardia LUNGS: no respiratory distress, no wheezes or rales or rhonchi ABD: non-distended SKIN: no evidence of rashes MSK: no evidence of trauma Vital Signs: 09:00 BP 129 / 86; Pulse 101; Resp 18; Temp 98.1; Pulse Ox 100% on R/A; Weight 127.01 kg; iw Height 5 ft. 5 in. ; 09:44 BP 143 / 83; Pulse 93; Resp 17 S; Pulse Ox 100% on R/A; kc6 09:00 Body Mass Index 46.60 (127.01 kg, 165.1 cm) iw MDM: 09:09 Medical Screening Exam initiated ec2 09:16 Data reviewed: vital signs, nurses notes. ED course: Patient arrives today for ec2 evaluation of shortness of breath. Examination yields tachycardia otherwise reassuring pulmonary examination. Will obtain a labs, EKG, chest x-ray and D-dimer. DDx considered include processes such as pneumonia, PE, anemia. 09:34 ED course: EKG independently reviewed and interpreted by me, shows sinus tachycardia, ec2 rate of 101, no acute ST segment elevations, intervals are nonactionable.. 10:12 ED course: Labs are nonactionable. On reassessment patient is well-appearing no acute ec2 distress. Will discharge home, patient with improvement in tachycardia. Reassuring D-dimer, will forego PE scan patient otherwise low risk.. 11/06 09:13 Order name: Basic Metabolic Panel; Complete Time: 10:08 ec2 11/06 09:13 Order name: CBC with Diff; Complete Time: 10:12 ec2 11/06 09:13 Order name: D-Dimer; Complete Time: 10:12 ec2 11/06 09:13 Order name: XRAY Chest (1 view); Complete Time: 10:08 ec2 11/06 09:13 Order name: Cardiac monitoring; Complete Time: 09:28 ec2 11/06 09:13 Order name: EKG - Nurse/Tech; Complete Time: 09:28 ec2 11/06 09:13 Order name: IV Saline Lock; Complete Time: 09:43 ec2 11/06 09:13 Order name: Labs collected and sent; Complete Time: 09:43 ec2 11/06 09:13 Order name: O2 Per Protocol; Complete Time: 09:28 ec2 11/06 09:13 Order name: O2 Sat Monitoring; Complete Time: 09:28 ec2 Administered Medications: 09:43 Drug: DuoNeb Nebulize (3:1) (2.5 mg - 0.5 mg) 3 ml Nebulizer once Route: Nebulizer; kc6 10:19 Follow up: Response: No adverse reaction kc6 Disposition Summary: 11/06/24 10:13 Discharge Ordered Notes: Location: Home ec2 Condition: Stable ec2 Diagnosis - Chest pain, unspecified ec2 Followup: ec2 - With: Private Physician - When: - Reason: Re-evaluation by your physician Discharge Instructions: - Discharge Summary Sheet ec2 - Nonspecific Chest Pain, Adult, [id number] ec2 Forms: - Medication Reconciliation Form ec2 - Antibiotic Education ec2 - Prescription Opioid Use ec2 - Patient Portal Instructions ec2 - Leadership Thank You Letter ec2 Prescriptions: - albuterol sulfate 90 mcg/actuation Inhalation HFA Aerosol Inhaler - inhale 4 puff INHALATION route every 6 hours as needed for bronchospasm; ec2 administer via ventilator; 1 unit; Refills: 0, Product Selection Permitted Signatures: Dispatcher [employer] Esperanza Hughes RN RN iw Caty Hough RN RN kc6 Jewel Yanes MD MD ec2
--- NOTE | 2024-11-06 10:13 | ER ---
Nurse's Notes [facility] Name: Barbie Mancilla Age: 34 yrs Sex: Female : 1990 Arrival Date: 11/06/2024 Time: 08:52 Bed 8 Private MD: Diagnosis: Chest pain, unspecified Presentation: 11/06 09:00 Chief complaint: Patient states: started with a mild cough, worse yesterday morning , iw has a mild wheeze , no fever or chills. Coronavirus screen: Client presents with at least one sign or symptom that may indicate coronavirus-19. Ebola Screen: No symptoms or risks identified at this time. Initial Sepsis Screen: Does the patient meet any 2 criteria? No. Patient's initial sepsis screen is negative. Does the patient have a suspected source of infection? No. Patient's initial sepsis screen is negative. Risk Assessment: Do you want to hurt yourself or someone else? Patient reports no desire to harm self or others. Onset of symptoms was November 03, 2024. 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 - Infectious Disease History:: Denies. - Social history:: Smoking status: Patient denies any tobacco usage or history of. Screenin:44 [facility] ED Fall Risk Assessment (Adult) History of falling in the last 3 months, kc6 including since admission No falls in past 3 months (0 pts) Confusion or Disorientation No (0 pts) Intoxicated or Sedated No (0 pts) Impaired Gait No (0 pts) Mobility Assist Device Used No (0 pt) Altered Elimination No (0 pt) Score/Fall Risk Level 0 - 2 = Low Risk Oriented to surroundings, Maintained a safe environment, Educated pt \T\ family on fall prevention, incl call for assistance when getting out of bed. Abuse screen: Denies threats or abuse. Denies injuries from another. Nutritional screening: No deficits noted. Tuberculosis screening: No symptoms or risk factors identified. Assessment: 09:45 General: Appears in no apparent distress. comfortable, obese, well groomed, well kc6 developed, Behavior is calm, cooperative, appropriate for age. Pain: Complains of pain in chest Pain does not radiate. Pain began 2-3 days ago. Is intermittent, Noted to be quiet/stoic. Neuro: Level of Consciousness is awake, alert, obeys commands, Oriented to person, place, time, situation, Appropriate for age. Cardiovascular: Reports chest pain, Heart tones S1 S2 present Capillary refill < 3 seconds Rhythm is sinus rhythm. Respiratory: Reports cough that is productive, Airway is patent Trachea midline Respiratory effort is even, unlabored, Respiratory pattern is regular, symmetrical, Breath sounds with wheezes bilaterally. EENT: Reports nasal congestion. 10:18 Reassessment: Patient appears in no apparent distress at this time. No changes from [facility] previously documented assessment. Patient and/or family updated on plan of care and expected duration. Pain level reassessed. Patient is alert, oriented x 3, equal unlabored respirations, skin warm/dry/pink. Vital Signs: 09:00 BP 129 / 86; Pulse 101; Resp 18; Temp 98.1; Pulse Ox 100% on R/A; Weight 127.01 kg; iw Height 5 ft. 5 in. ; 09:44 BP 143 / 83; Pulse 93; Resp 17 S; Pulse Ox 100% on R/A; kc6 09:00 Body Mass Index 46.60 (127.01 kg, 165.1 cm) ED Course: 08:56 Patient arrived in ED. cj3 09:01 Triage completed. iw 09:02 Jewel Yanes MD is Attending Physician. ec2 09:02 Arm band placed on. iw 09:28 Caty Hough, REN is Primary Nurse. kc6 09:43 Patient has correct armband on for positive identification. Bed in low position. Call [facility] light in reach. Side rails up X 1. hospital monitor on. Pulse ox on. NIBP on. Door closed. Noise minimized. Lights dimmed. Warm blanket given. Pillow given. Verbal reassurance given. 09:43 Initial lab(s) drawn, by me, sent to lab. Inserted saline lock: 20 gauge in right kc6 antecubital area, using aseptic technique. Blood collected. Flushed with 10 mL NS. Patient maintains SpO2 saturation greater than 95% on room air. 09:58 XRAY Chest (1 view) In Process Unspecified. EDMS 10:24 No provider procedures requiring assistance completed. IV discontinued, intact, kc6 bleeding controlled, No redness/swelling at site. Pressure dressing applied. Administered Medications: 09:43 Drug: DuoNeb Nebulize (3:1) (2.5 mg - 0.5 mg) 3 ml Nebulizer once Route: Nebulizer; kc6 10:19 Follow up: Response: No adverse reaction kc6 Medication: 10:24 VIS not applicable for this client. kc6 Outcome: 10:13 Discharge ordered by . ec2 10:24 Discharged to home ambulatory, kc6 10:24 Condition: good 10:24 Discharge instructions given to patient, Instructed on discharge instructions, follow up and referral plans. medication usage, Demonstrated understanding of instructions, follow-up care, medications, Prescriptions given X 1, 10:24 Patient left the ED. kc6 Signatures: Dispatcher [employer] Esperanza Hughes RN RN iw Caty Hough RN RN kc6 Jewel Yanes MD MD ec2 Alexsandra Jones cj3 Corrections: (The following items were deleted from the chart) 09:02 09:02 LMP 10/2024, unknown iw 09:03 09:00 Resp 18bpm; Pulse Ox 100% RA; Temp 98.1F; 127.01 kg; Height 5 ft. 5 in.; BMI: iw 46.5; iw
[2024-11-06 10:48] VITALS: TEMP 98.1; O2SAT 100
[2024-11-06 10:50] VITALS: BP 143/83
== END 2024-11-06 10:24 | disposition home or self-care (01) ==
LOC: ER 08:52
DX: R07.9 Chest pain, unspecified (principal); R05.9 Cough, unspecified
CPT/HCPCS: 36415; 71045; 80048; 85025; 85379; 93005; J7613; J7644